=== PATIENT | male | born 1955 ===

== ENCOUNTER 2020-09-02 14:19 | Inpatient (IN) ==
--- OUTSIDE RECORDS SUMMARY | 2020-09-02 14:23 | External Medical Summary | Continuity of Care Document ---
:1955 Author Name Nafisa Mcarthur, Provider Address Unavailable Unavailable , Care Team Providers Name Role Phone Garcia Rayo DO Unavailable [email or web address] Unavailable Unavailable Problems Asthma (493.90) (J45.909) Subcutaneous mass of back (782.2) (R22.2) Depression, major (296.20) (F32.9) Sleep disorder (780.50) (G47.9) Allergies and Adverse Reactions Penicillins (Allergy) Medications Xopenex HFA 45 MCG/ACT Inhalation Aeroso l; INHALE 1 PUFF EVERY 4 HOURS NEEDED. Start: 26-Jul-2018 Refills: 0 15 GM Inhaler FLUoxetine HCl - 20 MG Oral Tablet; TAKE 2 TABLETS DAILY. Start: 26-Jul-2018 Refills: 0 risperiDONE 2 MG Oral Tablet; TAKE 1 TABLET AT BEDTIME. Start: 26-Jul-2018 Refills: 0 traZODone HCl - 150 MG Oral Tablet; TAKE 1 TABLET AT BEDTIME . Start: 26-Jul-2018 Refills: 0 Procedures Procedures not documented Immunizations Immunizations not documented Family History Mother Family history of diabetes mellitus (V18.0) (Z83.3) Status: Active Family history of (799.9) (R99) Status: Active Social History - Smoking Status Ex-smoker Plan of Treatment Planned Observations Planned Goals not documented Results No Known Results Results not documented Encounters Appointment; Garcia Rayo DO 12-Sep-2018 10:00 Encounter Diagnosis: Problem not documented Appointment; Garcia Rayo DO 25-Oct-2018 8:00 Encounter Diagnosis: Problem not documented
[2020-09-02] MEDS ORDERED: SODIUM CHLORIDE 0.9% 1000ML 1,000 ML IV ONE (14:35)
[2020-09-02] MEDS ORDERED: ALBUTEROL 0.083% NEBU SOLN 3 ML VIAL NEB STA (14:35)
[2020-09-02] MEDS ORDERED: DEXAMETHASONE SOD INJ 10 MG/ML VIAL IV ONE (14:35)
--- NOTE | 2020-09-02 14:41 | Emergency Department Note ---
Impression & Plan Hypoxia, Pneumonia due to 2019-nCoV, Influenza ED Provider Note NAME: ANDREA [id number] FREDO AGE: 64 SEX: M : 1955 ARRIVES VIA: Ambulance INFORMANT: Patient ED PROVIDER(S): Morgan Workman DO CHIEF COMPLAINT: SOB HPI: Patient is a 64-year-old male with a past medical history of COPD who presents to the ER for shortness of breath. He is a prisoner who is positive for Covid on the . Started with a dry cough, diffuse myalgias and arthralgias. Shortness of breath has been getting significantly worse over the past 3 days. He was placed on nasal cannula. Shortness of breath persistently worsened and consequently O2's were increased and he was sent in for further evaluation. He has 75% on room air. Admits to intermittent chest pain only with coughing. No swelling of legs. No recent trips or travel. No history of blood clots. ROS: See above HPI for pertinent positives & negatives. A total of 10 systems reviewed and were otherwise negative. PAST MEDICAL HISTORY:See Below PAST SURGICAL HISTORY:See Below FAMILY HISTORY:See Below SOCIAL HISTORY:See Below HOME MEDICATIONS:See Below ALLERGIES:See Below VITALS:See Below PHYSICAL EXAMINATION: GENERAL: Sitting up in bed, alert, ill appearing, moderate distress EYE EXAM: normal conjunctiva. PERRL and EOM's grossly intact. OROPHARYNX: Mask in place NECK: supple, no nuchal rigidity, no adenopathy, non-tender LUNGS: Wheezing bilaterally. Normal chest wall mechanics HEART: no murmurs, S1 normal and S2 normal ABDOMEN: abdomen soft, non-tender, normo-active bowel sounds, no masses, no rebound or guarding. BACK: Back is symmetrical on inspection and there is no deformity, no midline tenderness, no CVA tenderness. SKIN: no rashes and no bruising UPPER EXTREMITIES: upper extremities are grossly normal. LOWER EXTREMITIES: No pitting edema. NEURO EXAM: Normal sensorium, cranial nerves II-XII grossly intact, normal speech, no gross weakness of arms, no gross weakness of legs. MEDICAL DECISION MAKING: Patient is a 64-year-old male with a past medical history of COPD that presents the ER for shortness of breath. IV was established blood work was obtained. He was placed on nasal cannula upon arrival as he was found to be 75% on room air. Labs show no significant leukocytosis or anemia. INR was unremarkable. D-dimer was elevated at 730. VBG was unremarkable. BMP with a transaminitis. Troponin was negative. Patient is positive for Covid as an outpatient and is positive for influenza. Attempted to obtain CT angio of the chest but was unable to lay flat. He was flipped to high flow nasal cannula. He was given IV antibiotics. Did place him on a heparin drip for the concern as he is Covid positive from the custodial concern for clotting. He was updated bedside. He had no bleeding risk factors. He was discussed with hospitalist and will be admitted for further work-up. He remained on high flow throughout the remainder of his stay in the ER. Triage Nursing notes reviewed. Limited review of prior medical records performed Vital Signs: reviewed and remarkable for hypoxic Differential diagnosis: Differential diagnoses includes but is not limited to pneumonia, bronchitis, COPD/Asthma exacerbation, pneumothorax, pulmonary embolism, congestive heart failure, acute coronary syndrome ER treatment provided: See below Diagnostics interpreted by me: ECG: Sinus rhythm rate 89 Normal axis No PVCs QTC 435 Cardiac Monitoring: An order was placed for continuous cardiac monitoring. The monitor shows a rate of 94 with sinus rhythm. Laboratory studies: As stated above and show below. Imaging studies: Portable AP upright 1 view of the chest shows multifocal pneumonia with bilateral opacities Consultation(s): Discussed with the hospitalist for further evaluation Procedures: none Critical Care: I have personally spent 52 minutes of critical care time in the direct management of this patient. This includes bedside care, interpretation of diagnostic studies, and testing, discussion with consultants, patient, and family members, and other required patient management activities. This 52 minutes is in excess of all separately billable procedures. Past Med/Surg History Medical History (Updated 09/02/20 @ 19:17 by Morgan Workman DO) Anxiety Bipolar disorder Chronic back pain Chronic obstructive pulmonary disease inhaler prn Depression GERD (gastroesophageal reflux disease) Irregular heartbeat Prostate cancer Surgical History No history of previous surgery Family History Other Family history unknown Social History Smoking Status: Former smoker Hx Alcohol Use: No Hx Substance Use: Yes (per record pt marked he had a hx of cocaine use) Last Used Substance Other:: unknown, pt is an inmate at [facility] Preferred Language: Maori Client Delivery Manager Required: No Beliefs That Will Affect Care: None Current Living Situation: Other Current Living Situation Comment: pt is an [facility] at [facility] Lela Feels Safe at Home: Yes Allergies Allergies Allergy/AdvReac Type Severity Reaction Status Date / Time Penicillins Allergy Unknown Unknown Verified 09/02/20 15:16 Home Meds Home Medications Medication Instructions Recorded Confirmed fluoxetine 40 mg PO HS 10/02/18 09/02/20 risperidone 2 mg PO HS 10/02/18 09/02/20 trazodone 150 mg PO HS 10/02/18 09/02/20 acetaminophen [Tylenol Extra 1,000 mg PO TID PRN 09/02/20 09/02/20 Strength] cholecalciferol (vitamin D3) 25 mcg PO DAILY 09/02/20 09/02/20 [Vitamin D3] ciclesonide [Alvesco] 1 puff INHALATION BID 09/02/20 09/02/20 ibuprofen 600 mg PO TID PRN 09/02/20 09/02/20 omeprazole 20 mg PO DAILY 09/02/20 09/02/20 ondansetron HCl 4 mg PO Q8H PRN 09/02/20 09/02/20 zinc sulfate 220 mg PO BID 09/02/20 09/02/20 Results & Data (ED) Vital Signs Vital Signs - 24 hr 09/02/20 14:26 09/02/20 14:30 09/02/20 14:31 Temperature Temperature Source Pulse Rate 93 H 92 H 91 H Pulse Rate [Apical] Pulse Rate from SpO2 Sensor 92 H 93 H 92 H Respiratory Rate 22 30 H 30 H Respiratory Effort / Characteristics Blood Pressure 147/92 H 166/101 H Blood Pressure Mean 110 122 Pulse Oximetry 96 96 97 Oxygen Delivery Method Oxymask Oxymask Oxymask Oxygen Flow Rate 10 10 10 Fraction of Inspired Oxygen Sepsis Recent Fever Within 48 Hours Sepsis New/Unexplained Change in Mental Status Sepsis Action Taken by Nursing 09/02/20 14:36 09/02/20 14:40 09/02/20 14:50 Temperature 37.7 C H Temperature Source Oral Pulse Rate 99 H 94 H 90 Pulse Rate [Apical] Pulse Rate from SpO2 Sensor 94 H 91 H Respiratory Rate 24 30 H 30 H Respiratory Effort / Characteristics Spontaneous Blood Pressure 166/91 H Blood Pressure Mean 116 Pulse Oximetry 97 95 93 Oxygen Delivery Method Nasal Cannula Oxymask Oxymask Oxygen Flow Rate 6 10 10 Fraction of Inspired Oxygen Sepsis Recent Fever Within 48 Hours Yes Sepsis New/Unexplained Change in Mental Status No Sepsis Action Taken by Nursing No Action Required 09/02/20 15:00 09/02/20 15:05 09/02/20 15:10 Temperature Temperature Source Pulse Rate 98 H 91 H 91 H Pulse Rate [Apical] Pulse Rate from SpO2 Sensor 99 H 93 H 91 H Respiratory Rate 22 22 Respiratory Effort / Characteristics Blood Pressure 177/94 H Blood Pressure Mean 121 Pulse Oximetry 94 94 94 Oxygen Delivery Method Oxymask Oxymask Oxymask Oxygen Flow Rate 10 10 10 Fraction of Inspired Oxygen Sepsis Recent Fever Within 48 Hours Sepsis New/Unexplained Change in Mental Status Sepsis Action Taken by Nursing 09/02/20 15:20 09/02/20 15:27 09/02/20 15:30 Temperature Temperature Source Pulse Rate 111 H 102 H Pulse Rate [Apical] 87 Pulse Rate from SpO2 Sensor 109 H 102 H Respiratory Rate 25 H 20 19 Respiratory Effort / Characteristics Spontaneous SOB on Exertion Blood Pressure Blood Pressure Mean Pulse Oximetry 90 91 97 Oxygen Delivery Method Oxymask High Flow Nasal Cannula High Flow Nasal Cannula Oxygen Flow Rate 10 30 Fraction of Inspired Oxygen 100 Sepsis Recent Fever Within 48 Hours Sepsis New/Unexplained Change in Mental Status Sepsis Action Taken by Nursing 09/02/20 15:31 09/02/20 15:40 09/02/20 16:08 Temperature Temperature Source Pulse Rate 94 H 90 97 H Pulse Rate [Apical] Pulse Rate from SpO2 Sensor 94 H 89 96 H Respiratory Rate 39 H 33 H 16 Respiratory Effort / Characteristics Blood Pressure 162/88 H Blood Pressure Mean 112 Pulse Oximetry 97 98 91 Oxygen Delivery Method High Flow Nasal Cannula High Flow Nasal Cannula Oxygen Flow Rate Fraction of Inspired Oxygen Sepsis Recent Fever Within 48 Hours Sepsis New/Unexplained Change in Mental Status Sepsis Action Taken by Nursing 09/02/20 16:10 09/02/20 16:11 09/02/20 16:20 Temperature Temperature Source Pulse Rate 96 H 93 H 92 H Pulse Rate [Apical] Pulse Rate from SpO2 Sensor 96 H 94 H 92 H Respiratory Rate 16 32 H 27 H Respiratory Effort / Characteristics Blood Pressure 168/101 H Blood Pressure Mean 123 Pulse Oximetry 93 94 93 Oxygen Delivery Method Oxygen Flow Rate Fraction of Inspired Oxygen Sepsis Recent Fever Within 48 Hours Sepsis New/Unexplained Change in Mental Status Sepsis Action Taken by Nursing 09/02/20 16:30 09/02/20 16:31 09/02/20 16:40 Temperature Temperature Source Pulse Rate 95 H 94 H 93 H Pulse Rate [Apical] Pulse Rate from SpO2 Sensor 96 H 94 H 93 H Respiratory Rate Respiratory Effort / Characteristics Blood Pressure 169/95 H Blood Pressure Mean 119 Pulse Oximetry 96 96 96 Oxygen Delivery Method Oxygen Flow Rate Fraction of Inspired Oxygen Sepsis Recent Fever Within 48 Hours Sepsis New/Unexplained Change in Mental Status Sepsis Action Taken by Nursing 09/02/20 16:50 09/02/20 17:00 09/02/20 17:10 Temperature Temperature Source Pulse Rate 105 H 102 H 103 H Pulse Rate [Apical] Pulse Rate from SpO2 Sensor 107 H 103 H 103 H Respiratory Rate 16 Respiratory Effort / Characteristics Blood Pressure Blood Pressure Mean Pulse Oximetry 98 95 92 Oxygen Delivery Method Oxygen Flow Rate Fraction of Inspired Oxygen Sepsis Recent Fever Within 48 Hours Sepsis New/Unexplained Change in Mental Status Sepsis Action Taken by Nursing 09/02/20 17:13 09/02/20 17:20 09/02/20 17:30 Temperature Temperature Source Pulse Rate 92 H 93 H 90 Pulse Rate [Apical] Pulse Rate from SpO2 Sensor 90 96 H 91 H Respiratory Rate 26 H Respiratory Effort / Characteristics Blood Pressure 167/98 H Blood Pressure Mean 121 Pulse Oximetry 92 92 Oxygen Delivery Method Oxygen Flow Rate Fraction of Inspired Oxygen Sepsis Recent Fever Within 48 Hours Sepsis New/Unexplained Change in Mental Status Sepsis Action Taken by Nursing 09/02/20 17:40 09/02/20 17:50 09/02/20 18:00 Temperature Temperature Source Pulse Rate 90 97 H 99 H Pulse Rate [Apical] Pulse Rate from SpO2 Sensor 88 98 H 99 H Respiratory Rate Respiratory Effort / Characteristics Blood Pressure Blood Pressure Mean Pulse Oximetry 94 91 95 Oxygen Delivery Method Oxygen Flow Rate Fraction of Inspired Oxygen Sepsis Recent Fever Within 48 Hours Sepsis New/Unexplained Change in Mental Status Sepsis Action Taken by Nursing 09/02/20 18:01 09/02/20 18:10 09/02/20 18:20 Temperature Temperature Source Pulse Rate 99 H 101 H 96 H Pulse Rate [Apical] Pulse Rate from SpO2 Sensor 100 H 98 H 97 H Respiratory Rate 23 Respiratory Effort / Characteristics Blood Pressure 158/109 H Blood Pressure Mean 125 Pulse Oximetry 95 93 94 Oxygen Delivery Method Oxygen Flow Rate Fraction of Inspired Oxygen Sepsis Recent Fever Within 48 Hours Sepsis New/Unexplained Change in Mental Status Sepsis Action Taken by Nursing Laboratory Data Result diagrams: 09/02/20 15:00 09/02/20 15:00 Lab Results 09/02/20 09/02/20 09/02/20 Range/Units 15:00 15:00 15:00 WBC 10.30 (4.8-10.8) K/uL RBC 5.18 (4.7-6.1) M/uL Hgb 15.1 (14.0-18.0) g/dL Hct 44.5 (42-52) % MCV 85.9 (80-100) fL MCH 29.2 (25-34) pg MCHC 33.9 (32-36) g/dL RDW Std Deviation 45.8 (36.4-46.3) fL RDW Coeff of Raimundo 14.5 (11.5-14.5) % Plt Count 274 (130-400) K/uL MPV 10.4 (7.4-10.4) fL Immature Gran % (Auto) 1.1 % Neut % (Auto) 83.0 % Lymph % (Auto) 9.6 % [place] % (Auto) 6.1 % Eos % (Auto) 0.1 % Baso % (Auto) 0.1 % Neut # (Auto) 8.55 H (1.4-6.5) K/uL Lymph # (Auto) 0.99 L (1.2-3.4) K/uL [place] # (Auto) 0.63 H (0.11-0.59) K/uL Eos # (Auto) 0.01 (0-0.5) K/uL Baso # (Auto) 0.01 (0-0.2) K/uL Immature Gran # (Auto) 0.11 H (0.00-0.02) K/uL PT Cancelled INR Cancelled APTT Cancelled PTT Ratio Cancelled D-Dimer (0-500) ug/L FEU VBG pH (7.36-7.41) VBG pCO2 (38-50) mmHg VBG pO2 mmHg VBG HCO3 mmol/L VBG O2 Saturation % VBG Base Excess mEq/L Barometric Pressure mm/Hg Sodium 137 (136-145) mmol/L Potassium 4.2 (3.5-5.1) mmol/L Chloride 106 (98-107) mmol/L Carbon Dioxide 29 (21-32) mmol/L Anion Gap 2.0 L (3-11) BUN 16 (7-18) mg/dl Creatinine 1.33 (0.6-1.4) mg/dl Est Cr Clr Drug Dosing 61.5 ml/min Est GFR ( Amer) 65.9 Est GFR (Non-Af Amer) 56.9 BUN/Creatinine Ratio 12.1 (10-20) Glucose 107 H (70-99) mg/dl Lactate (0.4-2.0) mmol/L Calcium 9.1 (8.5-10.1) mg/dl Ferritin (8-388) ng/ml Total Bilirubin 0.4 (0.2-1) mg/dl AST 179 H (15-37) U/L ALT 159 H (12-78) U/L Alkaline Phosphatase 92 (45-117) U/L Lactate Dehydrogenase (87-241) U/L Total Creatine Kinase (39-308) U/L Troponin I < 0.015 (0-0.045) ng/ml C-Reactive Protein (0-0.29) mg/dl NT-Pro-B Natriuret Pep (0-900) pg/ml Total Protein 7.8 (6.4-8.2) gm/dl Albumin 2.9 L (3.4-5.0) gm/dl Globulin 4.9 H (2.5-4.0) gm/dl Albumin/Globulin Ratio 0.6 L (0.9-2) Lipase 67 L (73-393) U/L Procalcitonin (0-0.5) ng/ml Influ A Molecular Assay (Negative) Influ B Molecular Assay (Negative) Blood Type Antibody Screen 09/02/20 09/02/20 09/02/20 Range/Units 15:00 15:56 17:15 WBC (4.8-10.8) K/uL RBC (4.7-6.1) M/uL Hgb (14.0-18.0) g/dL Hct (42-52) % MCV (80-100) fL MCH (25-34) pg MCHC (32-36) g/dL RDW Std Deviation (36.4-46.3) fL RDW Coeff of Raimundo (11.5-14.5) % Plt Count (130-400) K/uL MPV (7.4-10.4) fL Immature Gran % (Auto) % Neut % (Auto) % Lymph % (Auto) % [place] % (Auto) % Eos % (Auto) % Baso % (Auto) % Neut # (Auto) (1.4-6.5) K/uL Lymph # (Auto) (1.2-3.4) K/uL [place] # (Auto) (0.11-0.59) K/uL Eos # (Auto) (0-0.5) K/uL Baso # (Auto) (0-0.2) K/uL Immature Gran # (Auto) (0.00-0.02) K/uL PT INR APTT PTT Ratio D-Dimer (0-500) ug/L FEU VBG pH 7.36 (7.36-7.41) VBG pCO2 49 (38-50) mmHg VBG pO2 25 mmHg VBG HCO3 27 mmol/L VBG O2 Saturation < 60.0 % VBG Base Excess 1.1 mEq/L Barometric Pressure 721.2 mm/Hg Sodium (136-145) mmol/L Potassium (3.5-5.1) mmol/L Chloride (98-107) mmol/L Carbon Dioxide (21-32) mmol/L Anion Gap (3-11) BUN (7-18) mg/dl Creatinine (0.6-1.4) mg/dl Est Cr Clr Drug Dosing ml/min Est GFR ( Amer) Est GFR (Non-Af Amer) BUN/Creatinine Ratio (10-20) Glucose (70-99) mg/dl Lactate 1.4 (0.4-2.0) mmol/L Calcium (8.5-10.1) mg/dl Ferritin (8-388) ng/ml Total Bilirubin (0.2-1) mg/dl AST (15-37) U/L ALT (12-78) U/L Alkaline Phosphatase (45-117) U/L Lactate Dehydrogenase (87-241) U/L Total Creatine Kinase (39-308) U/L Troponin I (0-0.045) ng/ml C-Reactive Protein (0-0.29) mg/dl NT-Pro-B Natriuret Pep 36 (0-900) pg/ml Total Protein (6.4-8.2) gm/dl Albumin (3.4-5.0) gm/dl Globulin (2.5-4.0) gm/dl Albumin/Globulin Ratio (0.9-2) Lipase (73-393) U/L Procalcitonin (0-0.5) ng/ml Influ A Molecular Assay (Negative) Influ B Molecular Assay (Negative) Blood Type Antibody Screen 09/02/20 09/02/20 09/02/20 Range/Units 17:15 17:15 17:15 WBC (4.8-10.8) K/uL RBC (4.7-6.1) M/uL Hgb (14.0-18.0) g/dL Hct (42-52) % MCV (80-100) fL MCH (25-34) pg MCHC (32-36) g/dL RDW Std Deviation (36.4-46.3) fL RDW Coeff of Raimundo (11.5-14.5) % Plt Count (130-400) K/uL MPV (7.4-10.4) fL Immature Gran % (Auto) % Neut % (Auto) % Lymph % (Auto) % [place] % (Auto) % Eos % (Auto) % Baso % (Auto) % Neut # (Auto) (1.4-6.5) K/uL Lymph # (Auto) (1.2-3.4) K/uL [place] # (Auto) (0.11-0.59) K/uL Eos # (Auto) (0-0.5) K/uL Baso # (Auto) (0-0.2) K/uL Immature Gran # (Auto) (0.00-0.02) K/uL PT INR APTT PTT Ratio D-Dimer (0-500) ug/L FEU VBG pH (7.36-7.41) VBG pCO2 (38-50) mmHg VBG pO2 mmHg VBG HCO3 mmol/L VBG O2 Saturation % VBG Base Excess mEq/L Barometric Pressure mm/Hg Sodium (136-145) mmol/L Potassium (3.5-5.1) mmol/L Chloride (98-107) mmol/L Carbon Dioxide (21-32) mmol/L Anion Gap (3-11) BUN (7-18) mg/dl Creatinine (0.6-1.4) mg/dl Est Cr Clr Drug Dosing ml/min Est GFR ( Amer) Est GFR (Non-Af Amer) BUN/Creatinine Ratio (10-20) Glucose (70-99) mg/dl Lactate (0.4-2.0) mmol/L Calcium (8.5-10.1) mg/dl Ferritin 2456.7 H (8-388) ng/ml Total Bilirubin (0.2-1) mg/dl AST (15-37) U/L ALT (12-78) U/L Alkaline Phosphatase (45-117) U/L Lactate Dehydrogenase 713 H (87-241) U/L Total Creatine Kinase 862 H (39-308) U/L Troponin I (0-0.045) ng/ml C-Reactive Protein 13.70 H (0-0.29) mg/dl NT-Pro-B Natriuret Pep (0-900) pg/ml Total Protein (6.4-8.2) gm/dl Albumin (3.4-5.0) gm/dl Globulin (2.5-4.0) gm/dl Albumin/Globulin Ratio (0.9-2) Lipase (73-393) U/L Procalcitonin (0-0.5) ng/ml Influ A Molecular Assay (Negative) Influ B Molecular Assay (Negative) Blood Type O Positive Antibody Screen NEGATIVE 09/02/20 09/02/20 09/02/20 Range/Units 17:15 17:15 18:25 WBC (4.8-10.8) K/uL RBC (4.7-6.1) M/uL Hgb (14.0-18.0) g/dL Hct (42-52) % MCV (80-100) fL MCH (25-34) pg MCHC (32-36) g/dL RDW Std Deviation (36.4-46.3) fL RDW Coeff of Raimundo (11.5-14.5) % Plt Count (130-400) K/uL MPV (7.4-10.4) fL Immature Gran % (Auto) % Neut % (Auto) % Lymph % (Auto) % [place] % (Auto) % Eos % (Auto) % Baso % (Auto) % Neut # (Auto) (1.4-6.5) K/uL Lymph # (Auto) (1.2-3.4) K/uL [place] # (Auto) (0.11-0.59) K/uL Eos # (Auto) (0-0.5) K/uL Baso # (Auto) (0-0.2) K/uL Immature Gran # (Auto) (0.00-0.02) K/uL PT 12.0 INR 1.1 APTT 36.7 H PTT Ratio 1.3 D-Dimer 730 H* (0-500) ug/L FEU VBG pH (7.36-7.41) VBG pCO2 (38-50) mmHg VBG pO2 mmHg VBG HCO3 mmol/L VBG O2 Saturation % VBG Base Excess mEq/L Barometric Pressure mm/Hg Sodium (136-145) mmol/L Potassium (3.5-5.1) mmol/L Chloride (98-107) mmol/L Carbon Dioxide (21-32) mmol/L Anion Gap (3-11) BUN (7-18) mg/dl Creatinine (0.6-1.4) mg/dl Est Cr Clr Drug Dosing ml/min Est GFR ( Amer) Est GFR (Non-Af Amer) BUN/Creatinine Ratio (10-20) Glucose (70-99) mg/dl Lactate (0.4-2.0) mmol/L Calcium (8.5-10.1) mg/dl Ferritin (8-388) ng/ml Total Bilirubin (0.2-1) mg/dl AST (15-37) U/L ALT (12-78) U/L Alkaline Phosphatase (45-117) U/L Lactate Dehydrogenase (87-241) U/L Total Creatine Kinase (39-308) U/L Troponin I (0-0.045) ng/ml C-Reactive Protein (0-0.29) mg/dl NT-Pro-B Natriuret Pep (0-900) pg/ml Total Protein (6.4-8.2) gm/dl Albumin (3.4-5.0) gm/dl Globulin (2.5-4.0) gm/dl Albumin/Globulin Ratio (0.9-2) Lipase (73-393) U/L Procalcitonin 0.71 H (0-0.5) ng/ml Influ A Molecular Assay Negative (Negative) Influ B Molecular Assay Positive A* (Negative) Blood Type Antibody Screen Administered Medications Heparin Sodium/Dextrose (Heparin Sodium/Dextrose) 25,000 units in 500 mls @ 18 mls/hr IV .Q24H [facility]; Protocol Stop: 10/02/20 16:29 Last Admin: 09/02/20 16:45 Dose: 900 units/hr, 18 mls/hr Documented by: [id number] Cosigned by: [id number] Azithromycin 500 mg/ Dextrose 255 mls @ 127.5 mls/hr IV NOW STA Stop: 09/02/20 19:55 Last Admin: 09/02/20 18:25 Dose: 127.5 mls/hr Documented by: [id number] Discontinued Medications Albuterol (Albuterol 0.083% Nebu Soln 3 Ml Vial) 5 mg NEB NOW STA Stop: 09/02/20 14:36 Last Admin: 09/02/20 15:23 Dose: 5 mg Documented by: [id number] Dexamethasone (Dexamethasone Sod Inj 10 Mg/Ml Vial) 6 mg IV NOW ONE Stop: 09/02/20 14:36 Last Admin: 09/02/20 15:07 Dose: 6 mg Documented by: [id number] Furosemide (Furosemide 40 Mg/4 Ml Vial) 40 mg IV NOW STA Stop: 09/02/20 16:46 Last Admin: 09/02/20 16:49 Dose: 40 mg Documented by: [id number] Heparin Sodium (Porcine) (Heparin Sod (Porcine) 1000 Unit/Ml 10 Ml Vial) Confirm Administered Dose 10,000 units .ROUTE .STK-MED ONE Stop: 09/02/20 16:42 Last Admin: 09/02/20 16:45 Dose: 4,000 units Documented by: [id number] Cosigned by: [id number] Heparin Sodium (Porcine) (Heparin Bolus Ed Use Only) 4,000 units IV NOW STA Stop: 09/02/20 16:53 Last Admin: 09/02/20 17:50 Dose: Not Given Documented by: [id number] Heparin Sodium/Dextrose (Heparin Iv Low Dose With Bolus) 1 ea IV NOW STA; Protocol Stop: 09/02/20 16:17 Last Admin: 09/02/20 16:46 Dose: Not Given Documented by: [id number] Sodium Chloride (Nss 1000ml) 1,000 mls @ 999 mls/hr IV .Q1H1M ONE Stop: 09/02/20 15:35 Last Infusion: 09/02/20 16:15 Dose: 0 mls/hr Documented by: [id number] Admin: 09/02/20 15:07 Dose: 999 mls/hr Documented by: [id number] Ceftriaxone Sodium (Rocephin) 1,000 mg in 50 mls @ 100 mls/hr IV NOW STA; Protocol Stop: 09/02/20 15:27 Last Infusion: 09/02/20 16:33 Dose: 0 mls/hr Documented by: [id number] Admin: 09/02/20 15:09 Dose: 100 mls/hr Documented by: [id number] Ceftriaxone Sodium (Rocephin) 1,000 mg in 50 mls @ 100 mls/hr IV NOW STA Stop: 09/02/20 17:19 Last Admin: 09/02/20 17:20 Dose: 100 mls/hr Documented by: [id number] Ioversol (Optiray 320 125ml) 116 ml IV ONCE ONE Stop: 09/02/20 15:58 Last Admin: 09/02/20 15:58 Dose: 116 ml Documented by: [id number] Discharge Plan Visit Data Chief Complaint: Shortness of Breath/Dyspnea ED Provider: Morgan Workman Discharge Problem: Hypoxia, Pneumonia due to 2019-nCoV, Influenza Forms Stand Alone Forms: My [facility] Prescriptions Prescriptions: No Action risperidone 2 mg Tablet 2 mg PO HS RF: 0 trazodone 150 mg Tablet 150 mg PO HS RF: 0 fluoxetine 20 mg Tablet 40 mg PO HS RF: 0 ondansetron HCl 4 mg Tablet 4 mg PO Q8H PRN (Reason: Nausea) RF: 0 acetaminophen [Tylenol Extra Strength] 500 mg Tablet 1,000 mg PO TID PRN (Reason: Pain) RF: 0 zinc sulfate 220 mg Tablet 220 mg PO BID RF: 0 ibuprofen 600 mg Tablet 600 mg PO TID PRN (Reason: Pain) RF: 0 cholecalciferol (vitamin D3) [Vitamin D3] 25 mcg (1,000 unit) Tablet 25 mcg PO DAILY RF: 0 omeprazole 20 mg Tablet,Delayed Release (Dr/Ec) 20 mg PO DAILY RF: 0 Alvesco 80 mcg/actuation Hfa Aerosol Inhaler 1 puff INHALATION BID RF: 0
--- NOTE | 2020-09-02 14:49 | XRay Report ---
XR chest 1V portable CLINICAL HISTORY: Atypical chest pain. Shortness of breath. COMPARISON STUDY: No previous studies for comparison. FINDINGS: The heart is mildly enlarged. There is soft tissue prominence of the azygous region. Venous engorgement versus adenopathy. There are diffuse bilateral airspace opacities. Pulmonary edema versu s a multifocal pneumonia.[There are no large pleural effusions. IMPRESSION: 1. Cardiomegaly and bilateral pulmonary airspace opacities. Likely diagnostic considerations include pulmonary edema versus a multifocal pneumonia. Clinical and radiographic follow-up is recommended ACT 112: Negative or not required by law. Electronically signed by: Navdeep Skinner M.D. 09/02/2020 2:48 PM
[2020-09-02] MEDS ORDERED: cefTRIAXone SODIUM 1,000 MG/50 ML BAG IV STA ×2 (14:58→16:50)
[2020-09-02 15:19] LABS: Basophils # (auto) 0.01 K/uL (0-0.2); Basophils % (auto) 0.1 %; Eosinophils # (auto) 0.01 K/uL (0-0.5); Eosinophils % (auto) 0.1 %; Hematocrit (blood only) 44.5 % (42-52); Hemoglobin 15.1 g/dL (14.0-18.0); Immature Granulocytes # (auto) 0.11 K/uL (0.00-0.02); Immature Granulocytes % (auto) 1.1 %; Lymphocytes # (auto) 0.99 K/uL (1.2-3.4); Lymphocytes % (auto) 9.6 %; Mean Corpuscular Hemoglobin 29.2 pg (25-34); Mean Corpuscular Hgb Conc 33.9 g/dL (32-36); Mean Corpuscular Volume 85.9 fL (80-100); Mean Platelet Volume 10.4 fL (7.4-10.4); Monocytes # (auto) 0.63 K/uL (0.11-0.59); Monocytes % (auto) 6.1 %; Neutrophils # (auto) 8.55 K/uL (1.4-6.5); Platelet Count 274 K/uL (130-400); RDW Coefficient of Variation 14.5 % (11.5-14.5); RDW Standard Deviation 45.8 fL (36.4-46.3); Red Blood Count 5.18 M/uL (4.7-6.1)
[2020-09-02 15:35] LABS: Alanine Aminotransferase 159 U/L (12-78); Albumin Level 2.9 gm/dl (3.4-5.0); Aspartate Aminotransferase 179 U/L (15-37); BUN Creatinine Ratio 12.1 (10-20); Blood Urea Nitrogen 16 mg/dl (7-18); Calcium 9.1 mg/dl (8.5-10.1); Carbon Dioxide 29 mmol/L (21-32); Chloride 106 mmol/L (98-107); Creatinine Clr Calc Pharmacy 61.5 ml/min; Est GFR (African American) 65.9; Est GFR (Non-African American) 56.9; Glucose 107 mg/dl (70-99); Lipase 67 U/L (73-393); Potassium 4.2 mmol/L (3.5-5.1); Sodium 137 mmol/L (136-145)
[2020-09-02 15:40] LABS: Albumin Globulin Ratio 0.6 (0.9-2); Alkaline Phosphatase 92 U/L (45-117); Bilirubin,Total 0.4 mg/dl (0.2-1); Globulin 4.9 gm/dl (2.5-4.0); Total Protein 7.8 gm/dl (6.4-8.2); Troponin I < 0.015 ng/ml (0-0.045)
[2020-09-02] MEDS ORDERED: OPTIRAY 320 125ml IV ONE (15:57)
[2020-09-02 16:10] LABS: Base Excess VBG 1.1 mEq/L; HCO3 VBG 27 mmol/L; PCO2 VBG 49 mmHg (38-50); PO2 VBG 25 mmHg; pH VBG 7.36 (7.36-7.41)
[2020-09-02 16:15] LABS: Oxygen Saturation VBG < 60.0 %
[2020-09-02] MEDS ORDERED: Heparin IV Low Dose WITH Bolus IV STA (16:16)
[2020-09-02] MEDS ORDERED: HEPARIN SODIUM/DEXTROSE 25,000 UNITS/500 ML BAG IV SCH (16:30)
[2020-09-02] MEDS ORDERED: HEPARIN SOD (PORCINE) 1000 UNIT/ML 10 ML VIAL ONE (16:41)
[2020-09-02] MEDS ORDERED: FUROSEMIDE 40 MG/4 ML VIAL IV STA (16:45)
--- NOTE | 2020-09-02 16:48 | History & Physical Report ---
Date of Service September 02, 2020 Assessment & Plan (1) Acute respiratory failure with hypoxia: Secondary to COVID-19, influenza, pulmonary edema and possible secondary bacterial infection. Pulmonary embolism is less likely given d-dimer but risk of respiratory arrest given current desaturations on lying flat therefore could not perform CT for PE. Given severity of illness and high risk of deterioration will consult pulmonology to assist in care. Try to prone as much as possible. (2) Pneumonia due to COVID-19 virus: Dexamethasone 6 mg IV daily Convalescent plasma deferred due to dubious benefit on day 11 of illness. Day 11 of illness therefore do not suspect any benefit of remdesivir and potential risk with already elevated LFTs. Isolation precautions (3) Influenza B: Tamiflu 75mg PO BID (4) Acute pulmonary edema: No history of congestive heart failure (BNP low suggesting not hypervolemic, clinically dry on exam). No CAMPBELL to explain this. Suspect solely secondary to COVID-19 pneumonia as also clinically dry. Initially given NSS 1 L bolus in ER however given severity of respiratory status despite clinically dry elected to give 40 mg IV Lasix. Defer further lasix to clinical status in AM. Strict I&Os, daily weights - aim for net neutral balance. TTE Low-sodium diet, fluid restriction 1200 mL (5) Multifocal pneumonia: Continue ceftriaxone and azithromycin for secondary bacterial infection Procalcitonin pending (6) GERD (gastroesophageal reflux disease): Switch omeprazole to pantoprazole as per hospital formulary (7) Chronic obstructive pulmonary disease: No acute exacerbation. Patient feels worse with nebulizers Continue Alvesco or hospital formulary equivalent. (8) Bipolar disorder: Continue his usual psychiatric medications - risperidone, trazodone and fluoxetine. Monitor QTc with daily EKG (9) DVT prophylaxis: Iv heparin drip Admission and Anticipated Discharge Date Admission Date: September 02, 2020 History of Present Illness Chief Complaint: Shortness of breath, hypoxia. Primary Care Provider: RILEY Vogel Blayne Medina is a 64-year-old male who presents to the ER from [facility] with shortness of breath and hypoxia. Initially was sick on August 22. Symptoms including fever, chills, shortness of breath, diaphoresis, severe nasal congestion, non-productive cough, myalgias, PND, loss of appetite, loss of taste and smell, nausea, vomiting and orthopnea. When coughing he reports having an electric shock feeling down his right and and jaw. He denies diarrhea, chest or abdominal pain. When coughing right arm electricity, right side of face having pain. Couldn't walk from toilet to bed. He tested positive for COVID-19 around the and was moveed the the COVID-19 unit the . He became so unwell that he was unable to get out of bed with increasing hypoxia therefore was moved to the [facility] on the and has been on supplemental oxygen since then. Today he was noted to be significantly cyanotic with finger nails turning blue and worsening hypoxia (O2 sats 70% on 6L O2) therefore called EMS to transport to the ER. In the ER CXR concerning for cardiomegaly with bilateral pulmonary airspace opacities consistent with pulmonary edema vs. multifocal pneumonia. Since he had already tested positive for COVID-19 this was not repeated. Planned for CT for PE to rule this out however patient had significant desaturations and respiratory distress on lying flat therefore this could not be completed and he was started on IV heparin drip. NSS 1L bolus given as clinically dry on exam. Ceftriaxone and azithromycin given to cover for secondary bacterial infection. MRSA nasal swab negative. Able to maintain saturations around 96% on FiO2 100%, 30LPM high flow O2. He was referred to medicine for admission and ongoing management of COVID-19 pneumonia, acute hypoxic respiratory failure. Influenza PCR done after medicine consulted and subsequently positive for influenza B and patient given Tamiflu 75mg. Allergies Allergy/AdvReac Type Severity Reaction Status Date / Time Penicillins Allergy Unknown Unknown Verified 09/02/20 15:16 Home Medications Medication Instructions Recorded Confirmed Type fluoxetine 40 mg PO HS 10/02/18 09/02/20 History risperidone 2 mg PO HS 10/02/18 09/02/20 History trazodone 150 mg PO HS 10/02/18 09/02/20 History acetaminophen [Tylenol Extra 1,000 mg PO TID PRN 09/02/20 09/02/20 History Strength] cholecalciferol (vitamin D3) 25 mcg PO DAILY 09/02/20 09/02/20 History [Vitamin D3] ciclesonide [Alvesco] 1 puff INHALATION BID 09/02/20 09/02/20 History ibuprofen 600 mg PO TID PRN 09/02/20 09/02/20 History omeprazole 20 mg PO DAILY 09/02/20 09/02/20 History ondansetron HCl 4 mg PO Q8H PRN 09/02/20 09/02/20 History zinc sulfate 220 mg PO BID 09/02/20 09/02/20 History Past Med/Surg History Medical History (Updated 09/03/20 @ 08:17 by Rick Best MD) Anxiety Bipolar disorder Chronic back pain Chronic obstructive pulmonary disease inhaler prn Depression GERD (gastroesophageal reflux disease) Irregular heartbeat Prostate cancer Surgical History No history of previous surgery Family History Other Family history unknown Social History Smoking Status: Former smoker Hx Alcohol Use: No Hx Substance Use: No Preferred Language: Urugu[place] Taxation Consultant Required: No Beliefs That Will Affect Care: None Current Living Situation: Other Current Living Situation Comment: [employer] [facility] Other Information That Helps Us Care for You: Yes (Does not eat pork.) Feels Safe at Home: Yes Safety Concerns: Feels Safe At This Time Assistive Devices: Glasses and Oxygen - Continuous Review of Systems Review of Systems: All systems reviewed & are unremarkable except as noted in HPI & below Physical Exam Constitutional: well developed, well nourished, + acute distress (respiratory) and + ill appearing Eyes: PERRL, conjunctivae normal, anicteric sclerae ENMT: Ears: no external ear abnormality Nose: no external nose abnormality Mouth: + dry oral mucous membranes Neck: trachea midline, no thyromegaly Respiratory: + respiratory distress, + labored breathing, + retractions, + uses accessory muscles and + cough; + not able to speak in complete sentence, normal respiratory pattern, not tachypneic, expiratory phase not prolonged and no pursed lip breathing Auscultation: + diminished lung sounds (thorughout) and + crackles (bibasal); no wheezes Cardiovascular: Rate/Rhythm: regular rate and regular rhythm Heart Sounds: no murmur Vessels: no JVD Extremities: normal capillary refill; no calf tenderness and no pedal edema Gastrointestinal (Abdomen): normal bowel sounds, soft, nontender, no hepatosplenomegaly Musculoskeletal: no cyanosis or clubbing, extremities motor strength 5/5 Skin: no rashes, warm and dry Neurologic: moves all extremities and awake; no focal motor deficits and not confused Psychiatric: A+Ox3, euthymic affect Genitourinary: no CVA tenderness Results & Data Results & Data ([facility]) Vital Signs (Past 12 Hours) Vital Signs Temp Pulse Pulse Resp BP Pulse Ox 09/02/20 15:40 90 33 H 98 09/02/20 15:31 94 H 39 H 162/88 H 97 09/02/20 15:30 102 H 19 97 09/02/20 15:27 87 20 91 09/02/20 15:20 111 H 25 H 90 09/02/20 15:10 91 H 22 94 09/02/20 15:05 91 H 22 177/94 H 94 09/02/20 15:00 98 H 94 09/02/20 14:50 90 30 H 93 09/02/20 14:40 94 H 30 H 95 09/02/20 14:36 37.7 C H 99 H 24 166/91 H 97 09/02/20 14:31 91 H 30 H 97 09/02/20 14:30 92 H 30 H 166/101 H 96 09/02/20 14:26 93 H 22 147/92 H 96 Diagnostic Findings XR chest 1V portable IMPRESSION: 1. Cardiomegaly and bilateral pulmonary airspace opacities. Likely diagnostic considerations include pulmonary edema versus a multifocal pneumonia. Clinical and radiographic follow-up is recommended Medications Administered ER medications given: Heparin low-dose IV with bolus Dexamethasone 6 mg IV Albuterol 5 mg neb NSS 1 hour bolus Ceftriaxone 1 g IV ECG Indication: SOB/dyspnea Rate (beats per minute): 89 Rhythm: normal sinus Findings: no acute ischemic change Comparison ECG Date: no prior available Code Status & VTE Plan Code Status Full VTE Prophylaxis Plan VTE Prophylaxis will be ordered: Yes PG Care Time/CCT Total # of Minutes Spent Total Time Spent with Patient: Total time spent is greater than 50% in coordination of care (as documented) at patient's floor/unit and/or counseling patient: Coding Level of Care Code 87647 Initial Inpt Care Lvl 3 Diagnoses Acute respiratory failure with hypoxia J96.01 Pneumonia due to COVID-19 virus U07.1; J12.82 Influenza B J10.1 Acute pulmonary edema J81.0 Multifocal pneumonia J18.9 GERD (gastroesophageal reflux disease) K21.9 Chronic obstructive pulmonary disease J44.9 Bipolar disorder F31.9 DVT prophylaxis Z29.9
[2020-09-02] MEDS ORDERED: Heparin BOLUS **ED Use Only IV STA (16:52)
[2020-09-02 17:42] LABS: INR 1.1 (0.9-1.1); Partial Thromboplastin Ratio 1.3; Partial Thromboplastin Time 36.7 Seconds (21.0-31.0)
[2020-09-02 17:44] LABS: D Dimer 730 ug/L FEU (0-500)
[2020-09-02] MEDS ORDERED: AZITHROMYCIN 500 MG in DEXTROSE 5% 250 ML IV STA (17:56)
[2020-09-02 18:09] LABS: C Reactive Protein 13.7 mg/dl (0-0.29); Ferritin 2456.7 ng/ml (8-388)
[2020-09-02 19:01] LABS: Influenza A virus by PCR Negative (Negative); Influenza B virus by PCR Positive (Negative)
[2020-09-02] MEDS ORDERED: OSELTAMIVIR PHOSPHATE 75 MG CAP PO STA (19:15)
[2020-09-02] MEDS ORDERED: ONDANSETRON INJ 2 MG/ML 2 ML VIAL IV PRN (21:26)
[2020-09-02] MEDS ORDERED: ALUMINUM/MAGNESIUM SUSP 30 ML UDC PO PRN (21:26)
[2020-09-02 22:08] LABS: Base Excess ABG 1.3 mEq/L (-9-1.8); HCO3 ABG 25 mmol/L (19-24); Oxygen Saturation ABG 95.9 % (90-95); PCO2 ABG 37 mmHg (35-46); PO2 ABG 76 mmHg (80-95); pH ABG 7.45 (7.35-7.45)
[2020-09-02 22:09] LABS: Allen Test POS (Pos)
[2020-09-02] MEDS: traZODone HCL 50 MG TAB PO SCH (22:58)
[2020-09-02] MEDS: risperiDONE 2 MG TABLET PO SCH (22:59)
[2020-09-02] MEDS: FLUoxetine HCL 20 MG CAP PO SCH (22:59)
[2020-09-02 23:57] LABS: Partial Thromboplastin Ratio 2.6
[2020-09-03 00:04] LABS: Partial Thromboplastin Time 71.2 Seconds (21.0-31.0)
[2020-09-03 07:36] LABS: Basophils # (auto) 0.02 K/uL (0-0.2); Basophils % (auto) 0.2 %; Hematocrit (blood only) 46.6 % (42-52); Immature Granulocytes % (auto) 1.7 %; Lymphocytes # (auto) 1.16 K/uL (1.2-3.4); Lymphocytes % (auto) 9.9 %; Mean Corpuscular Hemoglobin 29.1 pg (25-34); Mean Corpuscular Hgb Conc 34.3 g/dL (32-36); Mean Corpuscular Volume 84.7 fL (80-100); Mean Platelet Volume 10.5 fL (7.4-10.4); Monocytes # (auto) 0.96 K/uL (0.11-0.59); Monocytes % (auto) 8.2 %; Neutrophils # (auto) 9.38 K/uL (1.4-6.5); Platelet Count 329 K/uL (130-400); RDW Coefficient of Variation 14.4 % (11.5-14.5); RDW Standard Deviation 45.2 fL (36.4-46.3); White Blood Count 11.72 K/uL (4.8-10.8)
[2020-09-03 07:59] LABS: Partial Thromboplastin Ratio 1.8
[2020-09-03 08:03] LABS: Albumin Level 3.1 gm/dl (3.4-5.0); BUN Creatinine Ratio 13.7 (10-20); Calcium 9.8 mg/dl (8.5-10.1); Creatinine Clr Calc Pharmacy 65.9 ml/min; Est GFR (African American) 71.8; Est GFR (Non-African American) 61.9; Potassium 4.4 mmol/L (3.5-5.1)
[2020-09-03 08:06] LABS: Albumin Globulin Ratio 0.6 (0.9-2); Bilirubin,Total 0.4 mg/dl (0.2-1); Globulin 5.5 gm/dl (2.5-4.0); Total Protein 8.6 gm/dl (6.4-8.2)
[2020-09-03 08:10] LABS: Partial Thromboplastin Time 50.1 Seconds (21.0-31.0)
[2020-09-03] MEDS: OSELTAMIVIR PHOSPHATE 75 MG CAP PO SCH ×2 (08:50→20:21)
[2020-09-03] MEDS: CHOLECALCIFEROL 1,000 UNITS 25 MCG TAB PO SCH (08:50)
[2020-09-03] MEDS: dexAMETHasone 6 MG in SYRINGE 0 ML IV SCH (08:50)
[2020-09-03] MEDS: PANTOprazole 40 MG TAB PO SCH (08:50)
[2020-09-03] MEDS: FLUTICASONE FUROATE 100MCG 14 PUFFS/INHALER INH SCH (08:51)
--- NOTE | 2020-09-03 09:36 | XRay Report ---
XR chest 1V portable HISTORY: Acute hypoxic respiratory failure COMPARISON: Chest 09/02/2020. FINDINGS: No pneumothorax. No pleural effusions. The heart remains mildly enlarged. Bilateral hazy ai rspace opacities most pronounced within the mid to lower lung zones have improved. IMPRESSION: 1. Interval improvement in the bilateral airspace opacities. 2. Stable cardiomegaly. ACT 112: Negative or not required by law. Electronically signed by: Per Stokes M.D. 09/03/2020 9:35 AM
--- NOTE | 2020-09-03 10:16 | Hospitalist Progress Note ---
Date of Service September 03, 2020 Assessment & Plan (1) Acute respiratory failure with hypoxia: Secondary to COVID-19, influenza, and possible secondary bacterial infection. Pulmonary embolism is less likely given d-dimer, stop heparin drip today, change to Lovenox 40 q12 for prophylaxis dosing this morning he is breathing stable on 30L and 90% FiO2, tachypnea but no distress and non-labored try to wean high flow as tolerated if he would get worse we can encourage prone positioning (2) Pneumonia due to COVID-19 virus: Dexamethasone 6 mg IV daily x 10 days, today is day 2 supplemental oxygen encourage PO intake, remove fluid restriction and make regular diet Day 11 of illness therefore do not suspect any benefit of remdesivir and potential risk with already elevated LFTs. Isolation precautions (3) Influenza B: Tamiflu 75mg PO BID x 7 days, day 2 today (4) Acute pulmonary edema: Suspect solely secondary to COVID-19 pneumonia as also clinically dry. remove fluid restriction cancel TTE for now, can get one when off restrictions, low suspicion for heart failure (5) Multifocal pneumonia: Continue ceftriaxone and azithromycin for secondary bacterial infection, treat for 5-7 days Procalcitonin 0.7 (6) GERD (gastroesophageal reflux disease): Switch omeprazole to pantoprazole as per hospital formulary (7) Chronic obstructive pulmonary disease: No acute exacerbation. Patient feels worse with nebulizers Continue Alvesco or hospital formulary equivalent. (8) Bipolar disorder: Continue his usual psychiatric medications - risperidone, trazodone and fluoxetine. Monitor QTc with daily EKG (9) DVT prophylaxis: lovenox 40 q12 Admission and Anticipated Discharge Date Admission Date: September 02, 2020 Subjective reviewed chart, admitted yesterday, CXR with multifocal pneumonia he tested positive for COVID back on 08/26, he has been sick since 08/22 he was in the [facility] but was hypoxic on 6L NC so he was sent to the ED he was also positive for influenza B in the ED labs this morning show WBC 11k, Hb 16, Cr 1.24, K 4.4 ABG yesterday showed hypoxemia with paO2 75, respiratory alkalosis CO2 37 D dimer was 730, could not lay flat for CTA chest, low suspicion for PE he appears comfortable this morning on 90% and 30L, no distress, no labored breathing, he is tachypneic he is hungry and thirsty, will remove fluid restriction and give regular diet he says he feels a lot better since he was admitted denies chest pain, admits to some coughing spells, no sputum production no GI symptoms such as diarrhea, but he does admit to some mild nausea, never vomited, no abdominal pain Review of Systems Review of Systems: All systems reviewed & are unremarkable except as noted in Subjective Physical Exam Constitutional: well developed, well nourished, + ill appearing and comfortable; no acute distress Neck: trachea midline, no thyromegaly Respiratory: + cough and + tachypneic; no respiratory distress and no labored breathing Auscultation: lungs clear to auscultation bilaterally Cardiovascular: RRR, no murmur, no edema Gastrointestinal (Abdomen): normal bowel sounds, soft, nontender, no hepatosplenomegaly Musculoskeletal: no cyanosis or clubbing, extremities motor strength 5/5 Skin: no rashes, warm and dry Neurologic: patellar DTR's 2+ bilat, sensation intact and PERRL, EOMI, accommodation nl, no face palsy, no dysarthria Psychiatric: A+Ox3, euthymic affect Lymphatic: no cervical or axillary lymphadenopathy Results & Data Results & Data ([facility]) Vital Signs (Past 12 Hours) Vital Signs Temp Pulse Pulse Resp BP Pulse Ox 09/03/20 07:54 37.1 C 89 27 H 155/96 H 92 09/03/20 07:50 93 H 34 H 93 09/03/20 07:15 104 H 34 H 95 09/03/20 04:07 37.5 C 92 H 18 156/90 H 98 09/03/20 03:28 95 H 38 H 96 09/03/20 00:00 99 H 09/02/20 23:54 37.2 C 98 H 20 171/106 H 95 09/02/20 22:39 85 20 93 Laboratory Results Laboratory Results - last 24 hr 09/02/20 09/02/20 09/02/20 15:00 15:00 15:00 WBC 10.30 RBC 5.18 Hgb 15.1 Hct 44.5 MCV 85.9 MCH 29.2 MCHC 33.9 RDW Std Deviation 45.8 RDW Coeff of Raimundo 14.5 Plt Count 274 MPV 10.4 Immature Gran % (Auto) 1.1 Neut % (Auto) 83.0 Lymph % (Auto) 9.6 Potter % (Auto) 6.1 Eos % (Auto) 0.1 Baso % (Auto) 0.1 Neut # (Auto) 8.55 H Lymph # (Auto) 0.99 L Potter # (Auto) 0.63 H Eos # (Auto) 0.01 Baso # (Auto) 0.01 Immature Gran # (Auto) 0.11 H PT Cancelled INR Cancelled APTT Cancelled PTT Ratio Cancelled D-Dimer ABG pH ABG pCO2 ABG pO2 ABG HCO3 ABG O2 Saturation ABG Base Excess Jamin Test VBG pH VBG pCO2 VBG pO2 VBG HCO3 VBG O2 Saturation VBG Base Excess Barometric Pressure Oxygen Given Sodium 137 Potassium 4.2 Chloride 106 Carbon Dioxide 29 Anion Gap 2.0 L BUN 16 Creatinine 1.33 Est Cr Clr Drug Dosing 61.5 Est GFR ( Amer) 65.9 Est GFR (Non-Af Amer) 56.9 BUN/Creatinine Ratio 12.1 Glucose 107 H Lactate Calcium 9.1 Ferritin Total Bilirubin 0.4 AST 179 H ALT 159 H Alkaline Phosphatase 92 Lactate Dehydrogenase Total Creatine Kinase Troponin I < 0.015 C-Reactive Protein NT-Pro-B Natriuret Pep Total Protein 7.8 Albumin 2.9 L Globulin 4.9 H Albumin/Globulin Ratio 0.6 L Lipase 67 L Procalcitonin Nasal Screen MRSA (PCR) Influ A Molecular Assay Influ B Molecular Assay Blood Type Antibody Screen 09/02/20 09/02/20 09/02/20 15:00 15:56 17:15 WBC RBC Hgb Hct MCV MCH MCHC RDW Std Deviation RDW Coeff of Raimundo Plt Count MPV Immature Gran % (Auto) Neut % (Auto) Lymph % (Auto) Potter % (Auto) Eos % (Auto) Baso % (Auto) Neut # (Auto) Lymph # (Auto) Potter # (Auto) Eos # (Auto) Baso # (Auto) Immature Gran # (Auto) PT INR APTT PTT Ratio D-Dimer ABG pH ABG pCO2 ABG pO2 ABG HCO3 ABG O2 Saturation ABG Base Excess Jamin Test VBG pH 7.36 VBG pCO2 49 VBG pO2 25 VBG HCO3 27 VBG O2 Saturation < 60.0 VBG Base Excess 1.1 Barometric Pressure 721.2 Oxygen Given Sodium Potassium Chloride Carbon Dioxide Anion Gap BUN Creatinine Est Cr Clr Drug Dosing Est GFR ( Amer) Est GFR (Non-Af Amer) BUN/Creatinine Ratio Glucose Lactate 1.4 Calcium Ferritin Total Bilirubin AST ALT Alkaline Phosphatase Lactate Dehydrogenase Total Creatine Kinase Troponin I C-Reactive Protein NT-Pro-B Natriuret Pep 36 Total Protein Albumin Globulin Albumin/Globulin Ratio Lipase Procalcitonin Nasal Screen MRSA (PCR) Influ A Molecular Assay Influ B Molecular Assay Blood Type Antibody Screen 09/02/20 09/02/20 09/02/20 17:15 17:15 17:15 WBC RBC Hgb Hct MCV MCH MCHC RDW Std Deviation RDW Coeff of Raimundo Plt Count MPV Immature Gran % (Auto) Neut % (Auto) Lymph % (Auto) Potter % (Auto) Eos % (Auto) Baso % (Auto) Neut # (Auto) Lymph # (Auto) Potter # (Auto) Eos # (Auto) Baso # (Auto) Immature Gran # (Auto) PT INR APTT PTT Ratio D-Dimer ABG pH ABG pCO2 ABG pO2 ABG HCO3 ABG O2 Saturation ABG Base Excess Jamin Test VBG pH VBG pCO2 VBG pO2 VBG HCO3 VBG O2 Saturation VBG Base Excess Barometric Pressure Oxygen Given Sodium Potassium Chloride Carbon Dioxide Anion Gap BUN Creatinine Est Cr Clr Drug Dosing Est GFR ( Amer) Est GFR (Non-Af Amer) BUN/Creatinine Ratio Glucose Lactate Calcium Ferritin 2456.7 H Total Bilirubin AST ALT Alkaline Phosphatase Lactate Dehydrogenase 713 H Total Creatine Kinase 862 H Troponin I C-Reactive Protein 13.70 H NT-Pro-B Natriuret Pep Total Protein Albumin Globulin Albumin/Globulin Ratio Lipase Procalcitonin Nasal Screen MRSA (PCR) Influ A Molecular Assay Influ B Molecular Assay Blood Type O Positive Antibody Screen NEGATIVE 09/02/20 09/02/20 09/02/20 17:15 17:15 18:25 WBC RBC Hgb Hct MCV MCH MCHC RDW Std Deviation RDW Coeff of Raimundo Plt Count MPV Immature Gran % (Auto) Neut % (Auto) Lymph % (Auto) Potter % (Auto) Eos % (Auto) Baso % (Auto) Neut # (Auto) Lymph # (Auto) Potter # (Auto) Eos # (Auto) Baso # (Auto) Immature Gran # (Auto) PT 12.0 INR 1.1 APTT 36.7 H PTT Ratio 1.3 D-Dimer 730 H* ABG pH ABG pCO2 ABG pO2 ABG HCO3 ABG O2 Saturation ABG Base Excess Jamin Test VBG pH VBG pCO2 VBG pO2 VBG HCO3 VBG O2 Saturation VBG Base Excess Barometric Pressure Oxygen Given Sodium Potassium Chloride Carbon Dioxide Anion Gap BUN Creatinine Est Cr Clr Drug Dosing Est GFR ( Amer) Est GFR (Non-Af Amer) BUN/Creatinine Ratio Glucose Lactate Calcium Ferritin Total Bilirubin AST ALT Alkaline Phosphatase Lactate Dehydrogenase Total Creatine Kinase Troponin I C-Reactive Protein NT-Pro-B Natriuret Pep Total Protein Albumin Globulin Albumin/Globulin Ratio Lipase Procalcitonin 0.71 H Nasal Screen MRSA (PCR) Influ A Molecular Assay Negative Influ B Molecular Assay Positive A* Blood Type Antibody Screen 09/02/20 09/02/20 09/02/20 18:25 21:41 23:06 WBC RBC Hgb Hct MCV MCH MCHC RDW Std Deviation RDW Coeff of Raimundo Plt Count MPV Immature Gran % (Auto) Neut % (Auto) Lymph % (Auto) Potter % (Auto) Eos % (Auto) Baso % (Auto) Neut # (Auto) Lymph # (Auto) Potter # (Auto) Eos # (Auto) Baso # (Auto) Immature Gran # (Auto) PT INR APTT 71.2 H* PTT Ratio 2.6 D-Dimer ABG pH 7.45 ABG pCO2 37 ABG pO2 76 L ABG HCO3 25 H ABG O2 Saturation 95.9 H ABG Base Excess 1.3 Jamin Test POS VBG pH VBG pCO2 VBG pO2 VBG HCO3 VBG O2 Saturation VBG Base Excess Barometric Pressure 721.8 Oxygen Given FiO2 90% Sodium Potassium Chloride Carbon Dioxide Anion Gap BUN Creatinine Est Cr Clr Drug Dosing Est GFR ( Amer) Est GFR (Non-Af Amer) BUN/Creatinine Ratio Glucose Lactate Calcium Ferritin Total Bilirubin AST ALT Alkaline Phosphatase Lactate Dehydrogenase Total Creatine Kinase Troponin I C-Reactive Protein NT-Pro-B Natriuret Pep Total Protein Albumin Globulin Albumin/Globulin Ratio Lipase Procalcitonin Nasal Screen MRSA (PCR) Negative Influ A Molecular Assay Influ B Molecular Assay Blood Type Antibody Screen 09/03/20 09/03/20 09/03/20 07:19 07:19 07:19 WBC 11.72 H RBC 5.50 Hgb 16.0 Hct 46.6 MCV 84.7 MCH 29.1 MCHC 34.3 RDW Std Deviation 45.2 RDW Coeff of Raimundo 14.4 Plt Count 329 MPV 10.5 H Immature Gran % (Auto) 1.7 Neut % (Auto) 80.0 Lymph % (Auto) 9.9 Potter % (Auto) 8.2 Eos % (Auto) 0.0 Baso % (Auto) 0.2 Neut # (Auto) 9.38 H Lymph # (Auto) 1.16 L Potter # (Auto) 0.96 H Eos # (Auto) 0.00 Baso # (Auto) 0.02 Immature Gran # (Auto) 0.20 H PT INR APTT 50.1 H* PTT Ratio 1.8 D-Dimer ABG pH ABG pCO2 ABG pO2 ABG HCO3 ABG O2 Saturation ABG Base Excess Jamin Test VBG pH VBG pCO2 VBG pO2 VBG HCO3 VBG O2 Saturation VBG Base Excess Barometric Pressure Oxygen Given Sodium 137 Potassium 4.4 Chloride 102 Carbon Dioxide 27 Anion Gap 7.0 BUN 17 Creatinine 1.24 Est Cr Clr Drug Dosing 65.9 Est GFR ( Amer) 71.8 Est GFR (Non-Af Amer) 61.9 BUN/Creatinine Ratio 13.7 Glucose 100 H Lactate Calcium 9.8 Ferritin Total Bilirubin 0.4 AST 208 H ALT 189 H Alkaline Phosphatase 96 Lactate Dehydrogenase Total Creatine Kinase Troponin I C-Reactive Protein NT-Pro-B Natriuret Pep Total Protein 8.6 H Albumin 3.1 L Globulin 5.5 H Albumin/Globulin Ratio 0.6 L Lipase Procalcitonin Nasal Screen MRSA (PCR) Influ A Molecular Assay Influ B Molecular Assay Blood Type Antibody Screen Medications Administered Current Inpatient Medications Acetaminophen (Acetaminophen 325 Mg Tab) 650 mg PO Q4H PRN PRN Reason: Pain or Fever Stop: 10/02/20 21:25 Al Hydrox/Mg Hydrox/Simethicone (Aluminum/Magnesium Susp 30 Ml Udc) 15 ml PO Q4H PRN PRN Reason: Dyspepsia Stop: 10/02/20 21:25 Enoxaparin Sodium (Enoxaparin Inj 40 Mg/0.4 Ml Syr) 40 mg SQ Q12H JESUS Stop: 10/03/20 18:59 Fluoxetine HCl (Fluoxetine Hcl 20 Mg Cap) 40 mg PO HS JESUS Stop: 10/02/20 21:59 Last Admin: 09/02/20 22:59 Dose: 40 mg Documented by: Fluticasone Furoate (Fluticasone Furoate 100mcg 14 Puffs/Inhaler) 1 puffs INH DAILY [facility] Stop: 10/03/20 08:59 Last Admin: 09/03/20 08:51 Dose: 1 puffs Documented by: Guaifenesin (Guaifenesin 600 Mg Tabcr) 1,200 mg PO Q12 [facility] Stop: 10/03/20 20:59 Ceftriaxone Sodium 2,000 mg/ (Dextrose) 70 mls @ 100 mls/hr IV Q24H [facility]; Protocol Stop: 09/09/20 13:59 Dexamethasone 6 mg/ Syringe 1.5 mls @ 1 mls/min IV QAM [facility] Stop: 09/12/20 08:59 Last Admin: 09/03/20 08:50 Dose: 1 mls/min Documented by: Azithromycin 500 mg/ Dextrose 255 mls @ 127.5 mls/hr IV Q24H [facility] Stop: 09/08/20 19:59 Ondansetron HCl (Ondansetron Inj 2 Mg/Ml 2 Ml Vial) 4 mg IV Q6H PRN PRN Reason: Nausea Stop: 10/02/20 21:25 Oseltamivir Phosphate (Oseltamivir Phosphate 75 Mg Cap) 75 mg PO BID [facility]; Protocol Stop: 09/08/20 08:59 Last Admin: 09/03/20 08:50 Dose: 75 mg Documented by: Pantoprazole Sodium (Pantoprazole 40 Mg Tab) 40 mg PO DAILY [facility] Stop: 10/03/20 08:59 Last Admin: 09/03/20 08:50 Dose: 40 mg Documented by: Risperidone (Risperidone 2 Mg Tablet) 2 mg PO HS [facility] Stop: 10/02/20 21:25 Last Admin: 09/02/20 22:59 Dose: 2 mg Documented by: Trazodone HCl (Trazodone Hcl 50 Mg Tab) 150 mg PO [facility] Stop: 10/02/20 21:25 Last Admin: 09/02/20 22:58 Dose: 150 mg Documented by: Vitamin D (Cholecalciferol 1,000 Units 25 Mcg Tab) 1,000 units PO DAILY [facility] Stop: 10/03/20 08:59 Last Admin: 09/03/20 08:50 Dose: 1,000 units Documented by: PG Care Time/CCT Total # of Minutes Spent Total Time Spent with Patient: Total time spent is greater than 50% in coordination of care (as documented) at patient's floor/unit and/or counseling patient: Coding Level of Care Code 83468 Subseq Hosp Care Lvl 3 Diagnoses Acute respiratory failure with hypoxia J96.01 Pneumonia due to COVID-19 virus U07.1; J12.82 Influenza B J10.1 Acute pulmonary edema J81.0 Multifocal pneumonia J18.9 GERD (gastroesophageal reflux disease) K21.9 Chronic obstructive pulmonary disease J44.9 Bipolar disorder F31.9 DVT prophylaxis Z29.9
[2020-09-03] MEDS: ACETAMINOPHEN 325 MG TAB PO PRN (11:58)
[2020-09-03] MEDS: cefTRIAXone SODIUM 2,000 MG in DEXTROSE 5% 50 ML IV SCH (14:22)
[2020-09-03] MEDS: AZITHROMYCIN 500 MG in DEXTROSE 5% 250 ML IV SCH (18:14)
[2020-09-03] MEDS: ENOXAPARIN INJ 40 MG/0.4 ML SYR SQ SCH (18:15)
[2020-09-03] MEDS: guaiFENesin 600 MG TABCR PO SCH (20:19)
[2020-09-03] MEDS: FLUoxetine HCL 20 MG CAP PO SCH (20:22)
[2020-09-03] MEDS: traZODone HCL 50 MG TAB PO SCH (20:22)
[2020-09-03] MEDS: risperiDONE 2 MG TABLET PO SCH (20:24)
--- NOTE | 2020-09-04 06:55 | Electrocardiogram Report ---
Test Reason : Blood Pressure : / mmHG Vent. Rate : 089 BPM Atrial Rate : 089 BPM P-R Int : 138 ms QRS Dur : 086 ms QT Int : 358 ms P-R-T Axes : 051 036 016 degrees QTc Int : 435 ms Normal sinus rhythm Nonspecific T wave abnormality No previous ECGs available Confirmed by Ashwin Rivas ([id number]) on 09/04/2020 6:55:24 AM Referred By: Lela LIN Confirmed By:Ashwin Rivas
--- NOTE | 2020-09-04 07:32 | Electrocardiogram Report ---
Test Reason : Blood Pressure : / mmHG Vent. Rate : 088 BPM Atrial Rate : 088 BPM P-R Int : 136 ms QRS Dur : 080 ms QT Int : 350 ms P-R-T Axes : 044 037 007 degrees QTc Int : 423 ms Normal sinus rhythm Normal ECG When compared with ECG of 02-SEP-2020 14:29, No significant change was found Confirmed by Ashwin Rivas ([id number]) on 09/04/2020 7:31:56 AM Referred By: Lela LIN Confirmed By:Ashwin Rivas
[2020-09-04] MEDS: ENOXAPARIN INJ 40 MG/0.4 ML SYR SQ SCH ×2 (08:14→18:16)
[2020-09-04] MEDS: dexAMETHasone 6 MG in SYRINGE 0 ML IV SCH (08:14)
[2020-09-04] MEDS: CHOLECALCIFEROL 1,000 UNITS 25 MCG TAB PO SCH (08:15)
[2020-09-04] MEDS: guaiFENesin 600 MG TABCR PO SCH ×2 (08:15→20:57)
[2020-09-04] MEDS: FLUTICASONE FUROATE 100MCG 14 PUFFS/INHALER INH SCH (08:15)
[2020-09-04] MEDS: OSELTAMIVIR PHOSPHATE 75 MG CAP PO SCH ×2 (08:15→20:57)
[2020-09-04] MEDS: PANTOprazole 40 MG TAB PO SCH (08:15)
--- NOTE | 2020-09-04 10:06 | Hospitalist Progress Note ---
Date of Service September 04, 2020 Assessment & Plan (1) Acute respiratory failure with hypoxia: Secondary to COVID-19, influenza, and possible secondary bacterial infection. Pulmonary embolism is less likely given d-dimer, stop heparin drip today, change to Lovenox 40 q12 for prophylaxis dosing this morning he is breathing stable on 35L and 90% FiO2, tachypnea but no distress and non-labored he is compliant with laying prone discussed with him that this is essential to preventing intubation, he understand and will continue to listen (2) Pneumonia due to COVID-19 virus: Dexamethasone 6 mg IV daily x 10 days, today is day 3 supplemental oxygen encourage PO intake, regular diet Day 12 of illness therefore do not suspect any benefit of remdesivir and potential risk with already elevated LFTs. Isolation precautions (3) Influenza B: Tamiflu 75mg PO BID x 5 days, day 3 today (4) Acute pulmonary edema: Suspect solely secondary to COVID-19 pneumonia as also clinically dry. remove fluid restriction cancel TTE for now, can get one when off restrictions, low suspicion for heart failure (5) Multifocal pneumonia: Continue ceftriaxone and azithromycin for secondary bacterial infection, treat for 5-7 days Procalcitonin 0.7, no fever (6) GERD (gastroesophageal reflux disease): Switch omeprazole to pantoprazole as per hospital formulary (7) Chronic obstructive pulmonary disease: No acute exacerbation. Patient feels worse with nebulizers Continue Alvesco or hospital formulary equivalent. (8) Bipolar disorder: Continue his usual psychiatric medications - risperidone, trazodone and fluoxetine. Monitor QTc with daily EKG (9) DVT prophylaxis: lovenox 40 q12 Admission and Anticipated Discharge Date Admission Date: September 02, 2020 Subjective patient still on 90% and 35L not in distress, he is compliant with laying prone, sats 94% on his stomach no fever, eating okay, has a dry cough, no chest pain, no GI symptoms no labs today, will check tomorrow Review of Systems Review of Systems: All systems reviewed & are unremarkable except as noted in Subjective Physical Exam Constitutional: well developed, well nourished, + ill appearing and comfortable; no acute distress Neck: trachea midline, no thyromegaly Respiratory: + cough and + tachypneic; no respiratory distress and no labored breathing Auscultation: lungs clear to auscultation bilaterally Cardiovascular: RRR, no murmur, no edema Gastrointestinal (Abdomen): normal bowel sounds, soft, nontender, no hepatosplenomegaly Musculoskeletal: no cyanosis or clubbing, extremities motor strength 5/5 Skin: no rashes, warm and dry Neurologic: patellar DTR's 2+ bilat, sensation intact and PERRL, EOMI, accommodation nl, no face palsy, no dysarthria Psychiatric: A+Ox3, euthymic affect Lymphatic: no cervical or axillary lymphadenopathy Results & Data Results & Data ([facility]) Vital Signs (Past 12 Hours) Vital Signs Temp Pulse Pulse Resp BP BP Pulse Ox 09/04/20 07:55 81 20 91 09/04/20 07:49 37.3 C 84 26 H 143/95 H 93 09/04/20 05:19 37 C 86 18 101/75 91 09/04/20 02:33 78 24 90 09/04/20 00:50 100 H 28 H 94 09/03/20 23:53 36.8 C 84 30 H 117/85 92 09/03/20 23:15 100 H 26 H 93 Medications Administered Current Inpatient Medications Acetaminophen (Acetaminophen 325 Mg Tab) 650 mg PO Q4H PRN PRN Reason: Pain or Fever Stop: 10/02/20 21:25 Last Admin: 09/03/20 11:58 Dose: 650 mg Documented by: Al Hydrox/Mg Hydrox/Simethicone (Aluminum/Magnesium Susp 30 Ml Udc) 15 ml PO Q4H PRN PRN Reason: Dyspepsia Stop: 10/02/20 21:25 Enoxaparin Sodium (Enoxaparin Inj 40 Mg/0.4 Ml Syr) 40 mg SQ Q12H [facility] Stop: 10/03/20 18:59 Last Admin: 09/04/20 08:14 Dose: 40 mg Documented by: Fluoxetine HCl (Fluoxetine Hcl 20 Mg Cap) 40 mg PO HS [facility] Stop: 10/02/20 21:59 Last Admin: 09/03/20 20:22 Dose: Not Given Documented by: Fluticasone Furoate (Fluticasone Furoate 100mcg 14 Puffs/Inhaler) 1 puffs INH DAILY [facility] Stop: 10/03/20 08:59 Last Admin: 09/04/20 08:15 Dose: 1 puffs Documented by: Guaifenesin (Guaifenesin 600 Mg Tabcr) 1,200 mg PO Q12 [facility] Stop: 10/03/20 20:59 Last Admin: 09/04/20 08:15 Dose: 1,200 mg Documented by: Ceftriaxone Sodium 2,000 mg/ (Dextrose) 70 mls @ 100 mls/hr IV Q24H [facility]; Protocol Stop: 09/09/20 13:59 Last Infusion: 09/03/20 15:23 Dose: Infused Documented by: Dexamethasone 6 mg/ Syringe 1.5 mls @ 1 mls/min IV QAM [facility] Stop: 09/12/20 08:59 Last Admin: 09/04/20 08:14 Dose: 1 mls/min Documented by: Azithromycin 500 mg/ Dextrose 255 mls @ 127.5 mls/hr IV Q24H [facility] Stop: 09/08/20 19:59 Last Infusion: 09/03/20 20:15 Dose: Infused Documented by: Ondansetron HCl (Ondansetron Inj 2 Mg/Ml 2 Ml Vial) 4 mg IV Q6H PRN PRN Reason: Nausea Stop: 10/02/20 21:25 Last Admin: 09/03/20 10:32 Dose: 4 mg Documented by: Oseltamivir Phosphate (Oseltamivir Phosphate 75 Mg Cap) 75 mg PO BID [facility]; Protocol Stop: 09/08/20 08:59 Last Admin: 09/04/20 08:15 Dose: 75 mg Documented by: Pantoprazole Sodium (Pantoprazole 40 Mg Tab) 40 mg PO DAILY [facility] Stop: 10/03/20 08:59 Last Admin: 09/04/20 08:15 Dose: 40 mg Documented by: Risperidone (Risperidone 2 Mg Tablet) 2 mg PO HS [facility] Stop: 10/02/20 21:25 Last Admin: 09/03/20 20:24 Dose: 2 mg Documented by: Trazodone HCl (Trazodone Hcl 50 Mg Tab) 150 mg PO HS [facility] Stop: 10/02/20 21:25 Last Admin: 09/03/20 20:22 Dose: Not Given Documented by: Vitamin D (Cholecalciferol 1,000 Units 25 Mcg Tab) 1,000 units PO DAILY [facility] Stop: 10/03/20 08:59 Last Admin: 09/04/20 08:15 Dose: 1,000 units Documented by: PG Care Time/CCT Total # of Minutes Spent Total Time Spent with Patient: Total time spent is greater than 50% in coordination of care (as documented) at patient's floor/unit and/or counseling patient: Coding Level of Care Code 95917 Subseq Hosp Care Lvl 3 Diagnoses Acute respiratory failure with hypoxia J96.01 Pneumonia due to COVID-19 virus U07.1; J12.82 Influenza B J10.1 Acute pulmonary edema J81.0 Multifocal pneumonia J18.9 GERD (gastroesophageal reflux disease) K21.9 Chronic obstructive pulmonary disease J44.9 Bipolar disorder F31.9 DVT prophylaxis Z29.9
[2020-09-04] MEDS: cefTRIAXone SODIUM 2,000 MG in DEXTROSE 5% 50 ML IV SCH (13:53)
[2020-09-04] MEDS: AZITHROMYCIN 500 MG in DEXTROSE 5% 250 ML IV SCH (18:12)
[2020-09-04] MEDS: traZODone HCL 50 MG TAB PO SCH (20:53)
[2020-09-04] MEDS: FLUoxetine HCL 20 MG CAP PO SCH (20:54)
[2020-09-04] MEDS: risperiDONE 2 MG TABLET PO SCH (20:54)
[2020-09-05 05:42] LABS: Basophils # (auto) 0.08 K/uL (0-0.2); Basophils % (auto) 0.4 %; Hematocrit (blood only) 47.5 % (42-52); Hemoglobin 15.7 g/dL (14.0-18.0); Immature Granulocytes # (auto) 0.74 K/uL (0.00-0.02); Immature Granulocytes % (auto) 4.1 %; Lymphocytes # (auto) 1.45 K/uL (1.2-3.4); Mean Corpuscular Hemoglobin 28.6 pg (25-34); Mean Corpuscular Hgb Conc 33.1 g/dL (32-36); Mean Corpuscular Volume 86.7 fL (80-100); Mean Platelet Volume 10.5 fL (7.4-10.4); Monocytes # (auto) 1.97 K/uL (0.11-0.59); Monocytes % (auto) 10.8 %; Neutrophils # (auto) 13.99 K/uL (1.4-6.5); Neutrophils % (auto) 76.7 %; Nucleated RBC # (auto) 0.09 K/uL (0-0); Nucleated RBC % (auto) 0.5 %; Platelet Count 393 K/uL (130-400); RDW Coefficient of Variation 14.4 % (11.5-14.5); RDW Standard Deviation 45.8 fL (36.4-46.3); Red Blood Count 5.48 M/uL (4.7-6.1); White Blood Count 18.23 K/uL (4.8-10.8)
[2020-09-05 06:19] LABS: BUN Creatinine Ratio 23.7 (10-20); Creatinine Clr Calc Pharmacy 66.7 ml/min; Est GFR (African American) 73.2; Est GFR (Non-African American) 63.1; Magnesium 2.8 mg/dl (1.8-2.4); Potassium 4.5 mmol/L (3.5-5.1)
[2020-09-05 06:20] LABS: Phosphorus 2.9 mg/dl (2.5-4.9)
[2020-09-05] MEDS: ENOXAPARIN INJ 40 MG/0.4 ML SYR SQ SCH ×2 (06:38→18:00)
[2020-09-05] MEDS: PANTOprazole 40 MG TAB PO SCH (08:40)
[2020-09-05] MEDS: OSELTAMIVIR PHOSPHATE 75 MG CAP PO SCH ×2 (08:40→21:11)
[2020-09-05] MEDS: CHOLECALCIFEROL 1,000 UNITS 25 MCG TAB PO SCH (08:40)
[2020-09-05] MEDS: FLUTICASONE FUROATE 100MCG 14 PUFFS/INHALER INH SCH (08:41)
[2020-09-05] MEDS: guaiFENesin 600 MG TABCR PO SCH ×2 (08:41→21:10)
[2020-09-05] MEDS: dexAMETHasone 6 MG in SYRINGE 0 ML IV SCH (08:41)
--- NOTE | 2020-09-05 12:33 | Hospitalist Progress Note ---
Date of Service September 05, 2020 Assessment & Plan (1) Acute respiratory failure with hypoxia: Secondary to COVID-19, influenza, and possible secondary bacterial infection. Pulmonary embolism is less likely given d-dimer, stop heparin drip today, change to Lovenox 40 q12 for prophylaxis dosing breathing remains stable on 35L and 90% FiO2, tachypnea but no distress and non- labored he is compliant with laying prone several hours a day discussed with him that this is essential to preventing intubation, he understand and will continue to listen even when he is supine his saturations are 90-93% on the 35L and 90%, will try to wean back a little and see how he does (2) Pneumonia due to COVID-19 virus: Dexamethasone 6 mg IV daily x 10 days, today is day 4 supplemental oxygen encourage PO intake, regular diet Day 12 of illness therefore do not suspect any benefit of remdesivir and potential risk with already elevated LFTs. Isolation precautions (3) Influenza B: Tamiflu 75mg PO BID x 5 days, day 4 today (4) Multifocal pneumonia: Continue ceftriaxone and azithromycin for secondary bacterial infection, treat for 5 days, today is day 4 Procalcitonin 0.7, no fever (5) GERD (gastroesophageal reflux disease): Switch omeprazole to pantoprazole as per hospital formulary (6) Chronic obstructive pulmonary disease: No acute exacerbation. Patient feels worse with nebulizers Continue Alvesco or hospital formulary equivalent. (7) Bipolar disorder: Continue his usual psychiatric medications - risperidone, trazodone and fluoxetine. Monitor QTc with daily EKG (8) DVT prophylaxis: lovenox 40 q12 Admission and Anticipated Discharge Date Admission Date: September 02, 2020 Subjective patient is calm, no distress, he is a little tachypneic, laying supine he is eating well, he says he plans to lay prone again prior to lunch, he has been prone several hours a day, working well for him no fever, vitals stable, labs reviewed WBC 18k, Cr 1.22, K 4.5 no chest pain, no GI symptoms such as nausea/vomiting or diarrhea he admits to feeling chills from time to time he is a very compliant patient, working hard to get better, laying prone as instructed Review of Systems Review of Systems: All systems reviewed & are unremarkable except as noted in Subjective Constitutional: + chills; no fever, no sweats, no fatigue and no weakness Respiratory: + cough and + dyspnea Cardiovascular: no chest pain and no edema Gastrointestinal: no abdominal pain, no nausea, no vomiting, no constipation and no diarrhea/loose stools Physical Exam Constitutional: well developed, well nourished and comfortable; no acute distress Neck: trachea midline, no thyromegaly Respiratory: + tachypneic; no respiratory distress and no labored breathing Auscultation: lungs clear to auscultation bilaterally Cardiovascular: RRR, no murmur, no edema Gastrointestinal (Abdomen): normal bowel sounds, soft, nontender, no hepatosplenomegaly Musculoskeletal: no cyanosis or clubbing, extremities motor strength 5/5 Skin: no rashes, warm and dry Neurologic: patellar DTR's 2+ bilat, sensation intact and PERRL, EOMI, accommodation nl, no face palsy, no dysarthria Psychiatric: A+Ox3, euthymic affect Lymphatic: no cervical or axillary lymphadenopathy Results & Data Results & Data ([facility]) Vital Signs (Past 12 Hours) Vital Signs Temp Pulse Pulse Resp BP BP Pulse Ox 09/05/20 11:42 72 18 97 09/05/20 08:39 80 20 91 09/05/20 07:50 36.9 C 82 24 125/62 90 09/05/20 04:13 37.1 C 80 21 146/88 H 90 09/05/20 03:17 82 20 94 09/05/20 01:50 75 Laboratory Results Laboratory Results - last 24 hr 09/05/20 09/05/20 05:09 05:09 WBC 18.23 H RBC 5.48 Hgb 15.7 Hct 47.5 MCV 86.7 MCH 28.6 MCHC 33.1 RDW Std Deviation 45.8 RDW Coeff of Raimundo 14.4 Plt Count 393 MPV 10.5 H Immature Gran % (Auto) 4.1 Neut % (Auto) 76.7 Lymph % (Auto) 8.0 [place] % (Auto) 10.8 Eos % (Auto) 0.0 Baso % (Auto) 0.4 Neut # (Auto) 13.99 H Lymph # (Auto) 1.45 [place] # (Auto) 1.97 H Eos # (Auto) 0.00 Baso # (Auto) 0.08 Immature Gran # (Auto) 0.74 H Absolute Nucleated RBC 0.09 H Nucleated RBC % (auto) 0.5 Sodium 137 Potassium 4.5 Chloride 104 Carbon Dioxide 30 Anion Gap 3.0 BUN 29 H D Creatinine 1.22 Est Cr Clr Drug Dosing 66.7 Est GFR ( Amer) 73.2 Est GFR (Non-Af Amer) 63.1 BUN/Creatinine Ratio 23.7 H Glucose 115 H Calcium 9.0 Phosphorus 2.9 Magnesium 2.8 H Medications Administered Current Inpatient Medications Acetaminophen (Acetaminophen 325 Mg Tab) 650 mg PO Q4H PRN PRN Reason: Pain or Fever Stop: 10/02/20 21:25 Last Admin: 09/03/20 11:58 Dose: 650 mg Documented by: Al Hydrox/Mg Hydrox/Simethicone (Aluminum/Magnesium Susp 30 Ml Udc) 15 ml PO Q4H PRN PRN Reason: Dyspepsia Stop: 10/02/20 21:25 Enoxaparin Sodium (Enoxaparin Inj 40 Mg/0.4 Ml Syr) 40 mg SQ Q12H [facility] Stop: 10/03/20 18:59 Last Admin: 09/05/20 06:38 Dose: 40 mg Documented by: Fluoxetine HCl (Fluoxetine Hcl 20 Mg Cap) 40 mg PO HS [facility] Stop: 10/02/20 21:59 Last Admin: 09/04/20 20:54 Dose: Not Given Documented by: Fluticasone Furoate (Fluticasone Furoate 100mcg 14 Puffs/Inhaler) 1 puffs INH DAILY [facility] Stop: 10/03/20 08:59 Last Admin: 09/05/20 08:41 Dose: 1 puffs Documented by: Guaifenesin (Guaifenesin 600 Mg Tabcr) 1,200 mg PO Q12 [facility] Stop: 10/03/20 20:59 Last Admin: 09/05/20 08:41 Dose: 1,200 mg Documented by: Ceftriaxone Sodium 2,000 mg/ (Dextrose) 70 mls @ 100 mls/hr IV Q24H [facility]; Protocol Stop: 09/09/20 13:59 Last Infusion: 09/04/20 14:52 Dose: Infused Documented by: Dexamethasone 6 mg/ Syringe 1.5 mls @ 1 mls/min IV QAM [facility] Stop: 09/12/20 08:59 Last Admin: 09/05/20 08:41 Dose: 1 mls/min Documented by: Azithromycin 500 mg/ Dextrose 255 mls @ 127.5 mls/hr IV Q24H [facility] Stop: 09/08/20 19:59 Last Infusion: 09/04/20 20:40 Dose: Infused Documented by: Ondansetron HCl (Ondansetron Inj 2 Mg/Ml 2 Ml Vial) 4 mg IV Q6H PRN PRN Reason: Nausea Stop: 10/02/20 21:25 Last Admin: 09/03/20 10:32 Dose: 4 mg Documented by: Oseltamivir Phosphate (Oseltamivir Phosphate 75 Mg Cap) 75 mg PO BID [facility]; Protocol Stop: 09/08/20 08:59 Last Admin: 09/05/20 08:40 Dose: 75 mg Documented by: Pantoprazole Sodium (Pantoprazole 40 Mg Tab) 40 mg PO DAILY [facility] Stop: 10/03/20 08:59 Last Admin: 09/05/20 08:40 Dose: 40 mg Documented by: Risperidone (Risperidone 2 Mg Tablet) 2 mg PO HS [facility] Stop: 10/02/20 21:25 Last Admin: 09/04/20 20:54 Dose: Not Given Documented by: Trazodone HCl (Trazodone Hcl 50 Mg Tab) 150 mg PO HS [facility] Stop: 10/02/20 21:25 Last Admin: 09/04/20 20:53 Dose: Not Given Documented by: Vitamin D (Cholecalciferol 1,000 Units 25 Mcg Tab) 1,000 units PO DAILY [facility] Stop: 10/03/20 08:59 Last Admin: 09/05/20 08:40 Dose: 1,000 units Documented by: PG Care Time/CCT Total # of Minutes Spent Total Time Spent with Patient: Total time spent is greater than 50% in coordination of care (as documented) at patient's floor/unit and/or counseling patient: Coding Level of Care Code 20817 Subseq Hosp Care Lvl 3 Diagnoses Acute respiratory failure with hypoxia J96.01 Pneumonia due to COVID-19 virus U07.1; J12.82 Influenza B J10.1 Multifocal pneumonia J18.9 GERD (gastroesophageal reflux disease) K21.9 Chronic obstructive pulmonary disease J44.9 Bipolar disorder F31.9 DVT prophylaxis Z29.9
[2020-09-05] MEDS: cefTRIAXone SODIUM 2,000 MG in DEXTROSE 5% 50 ML IV SCH (14:08)
[2020-09-05] MEDS: AZITHROMYCIN 500 MG in DEXTROSE 5% 250 ML IV SCH (17:41)
[2020-09-05] MEDS: risperiDONE 2 MG TABLET PO SCH ×2 (21:11→21:31)
[2020-09-05] MEDS: traZODone HCL 50 MG TAB PO SCH ×2 (21:11→21:31)
[2020-09-05] MEDS: FLUoxetine HCL 20 MG CAP PO SCH ×2 (21:11→21:29)
[2020-09-06] MEDS: ENOXAPARIN INJ 40 MG/0.4 ML SYR SQ SCH ×2 (06:40→18:02)
--- NOTE | 2020-09-06 08:34 | Hospitalist Progress Note ---
Date of Service September 06, 2020 Assessment & Plan (1) Acute respiratory failure with hypoxia: Secondary to COVID-19, influenza B, and possible secondary bacterial infection. Pulmonary embolism is less likely given d-dimer, stopped heparin drip changed to Lovenox 40 q12 for prophylaxis dosing breathing remains on High Flow he is compliant with laying prone several hours a day even when he is supine his saturations are 90-93% on the 30L and 75% (2) Pneumonia due to COVID-19 virus: Dexamethasone 6 mg IV daily x 10 days,LD 09/11 supplemental oxygen encourage PO intake, regular diet almost 2 weeks from the initial symptoms of illness, so will be little benefit of remdesivir and potential risk with already elevated LFTs. Isolation precautions (3) Influenza B: Tamiflu 75mg PO BID x 5 days (4) Multifocal pneumonia: Continue ceftriaxone and azithromycin for secondary bacterial infection, treat for 5 days, Procalcitonin 0.7, no fever (5) GERD (gastroesophageal reflux disease): Switch omeprazole to pantoprazole as per hospital formulary (6) Chronic obstructive pulmonary disease: No acute exacerbation. Patient feels worse with nebulizers Continue Alves[place] or hospital formulary equivalent. (7) Bipolar disorder: Continue his usual psychiatric medications - risperidone, trazodone and fluoxetine. (8) DVT prophylaxis: lovenox 40 q12 Admission and Anticipated Discharge Date Admission Date: September 02, 2020 Subjective pt is doing well still requiring bipap, he has non productive cough and is otherwise without new complaints Review of Systems Review of Systems: Mild distress and fatigue no headache, blurry or double vision no speech or swallowing issues No chest pain pressure or palpitations Mild but persistent shortness of breath, nonproductive cough no abdominal pain, nausea or vomiting, diarrhea or constipation no dysuria, hematuria or frequency no focal joint pain or swelling no back pain, CVA tenderness or radicular pain no bruising, bleeding or rashes no focal signs of weakness or numbness or altered sensation no complaints of anxiety or depression.. Physical Exam Physical Exam: The patient appeared well nourished and normally developed. Vital signs as documented. Head exam is normocephalic atraumatic no scleral icterus Neck is without JVD, thyromegaly, or carotid bruits. Lungs are bibasilar rales clearing at the apex Cardiac exam, Rhythm is regular.. No murmurs, rubs or gallops. Abdominal exam reveals normal bowel sounds, soft non tender, no masses Extremities are nonedematous and both pedal pulses are present Neurologic exam is alert and oriented, no focal loss of strength or sensation Skin is without bruises or rashes Psychologically is without concerns for anxiety or depression. Results & Data Results & Data ([facility]) Vital Signs (Past 12 Hours) Vital Signs Temp Pulse Pulse Resp BP BP Pulse Ox 09/06/20 08:02 99.0 F 82 20 131/86 90 09/06/20 07:39 74 24 93 09/06/20 03:49 98.1 F 76 18 123/82 91 09/06/20 03:37 82 16 90 09/06/20 00:48 68 09/05/20 23:31 98.1 F 71 21 126/82 95 09/05/20 22:55 84 20 94 PG Care Time/CCT Total # of Minutes Spent Total Time Spent with Patient: Total time spent is greater than 50% in coordination of care (as documented) at patient's floor/unit and/or counseling patient: Coding Level of Care Code 20680 Subseq Hosp Care Lvl 3 Diagnoses Acute respiratory failure with hypoxia J96.01 Pneumonia due to COVID-19 virus U07.1; J12.82 Influenza B J10.1 Multifocal pneumonia J18.9 GERD (gastroesophageal reflux disease) K21.9 Chronic obstructive pulmonary disease J44.9 Bipolar disorder F31.9 DVT prophylaxis Z29.9
[2020-09-06] MEDS: dexAMETHasone 6 MG in SYRINGE 0 ML IV SCH (08:36)
[2020-09-06] MEDS: FLUTICASONE FUROATE 100MCG 14 PUFFS/INHALER INH SCH (08:36)
[2020-09-06] MEDS: PANTOprazole 40 MG TAB PO SCH (08:38)
[2020-09-06] MEDS: CHOLECALCIFEROL 1,000 UNITS 25 MCG TAB PO SCH (08:38)
[2020-09-06] MEDS: OSELTAMIVIR PHOSPHATE 75 MG CAP PO SCH ×2 (08:38→20:44)
[2020-09-06] MEDS: guaiFENesin 600 MG TABCR PO SCH ×2 (08:38→20:44)
[2020-09-06] MEDS ORDERED: SODIUM CHLORIDE 0.65% NA SOLN 45 ML (OCEAN) ONE (14:59)
[2020-09-06] MEDS: cefTRIAXone SODIUM 2,000 MG in DEXTROSE 5% 50 ML IV SCH (15:02)
[2020-09-06] MEDS: AZITHROMYCIN 500 MG in DEXTROSE 5% 250 ML IV SCH (18:02)
[2020-09-06] MEDS: risperiDONE 2 MG TABLET PO SCH (20:45)
[2020-09-06] MEDS: traZODone HCL 50 MG TAB PO SCH (20:49)
[2020-09-06] MEDS: FLUoxetine HCL 20 MG CAP PO SCH (20:49)
[2020-09-07] MEDS: ENOXAPARIN INJ 40 MG/0.4 ML SYR SQ SCH ×2 (06:12→17:36)
[2020-09-07] MEDS: guaiFENesin 600 MG TABCR PO SCH ×2 (08:33→20:27)
[2020-09-07] MEDS: dexAMETHasone 6 MG in SYRINGE 0 ML IV SCH (08:33)
[2020-09-07] MEDS: OSELTAMIVIR PHOSPHATE 75 MG CAP PO SCH ×2 (08:34→20:28)
[2020-09-07] MEDS: FLUTICASONE FUROATE 100MCG 14 PUFFS/INHALER INH SCH (08:34)
[2020-09-07] MEDS: PANTOprazole 40 MG TAB PO SCH (08:34)
[2020-09-07] MEDS: CHOLECALCIFEROL 1,000 UNITS 25 MCG TAB PO SCH (08:34)
--- NOTE | 2020-09-07 16:37 | Hospitalist Progress Note ---
Date of Service September 07, 2020 Assessment & Plan (1) Acute respiratory failure with hypoxia: Secondary to COVID-19, influenza B, and possible secondary bacterial infection. Pulmonary embolism is less likely given d-dimer, stopped heparin drip changed to Lovenox 40 q12 for prophylaxis dosing breathing remains on vapotherm he is compliant with laying prone as much as possible even when he is supine his saturations are 90-93% on the 25L and 60% (2) Pneumonia due to COVID-19 virus: Dexamethasone 6 mg IV daily x 10 days,LD 09/11 supplemental oxygen encourage PO intake, regular diet almost 2 weeks from the initial symptoms of illness, so will be little benefit of remdesivir and potential risk with already elevated LFTs. Isolation precautions (3) Influenza B: Tamiflu 75mg PO BID x 5 days (4) Multifocal pneumonia: Continue ceftriaxone and azithromycin for secondary bacterial infection, treat for 5 days, Procalcitonin 0.7, no fever (5) GERD (gastroesophageal reflux disease): Switch omeprazole to pantoprazole as per hospital formulary (6) Chronic obstructive pulmonary disease: No acute exacerbation. Patient feels worse with nebulizers Continue Alves[place] or hospital formulary equivalent. (7) Bipolar disorder: Continue his usual psychiatric medications - risperidone, trazodone and fluoxetine. (8) DVT prophylaxis: lovenox 40 q12 Admission and Anticipated Discharge Date Admission Date: September 02, 2020 Subjective pt is doing well on reducing vapotherm suppport, he continues with a non productive cough and is otherwise without new complaints Review of Systems Review of Systems: Mild distress and fatigue no headache, blurry or double vision no speech or swallowing issues No chest pain pressure or palpitations Mild but persistent shortness of breath, nonproductive cough no abdominal pain, nausea or vomiting, diarrhea or constipation no dysuria, hematuria or frequency no focal joint pain or swelling no back pain, CVA tenderness or radicular pain no bruising, bleeding or rashes no focal signs of weakness or numbness or altered sensation no complaints of anxiety or depression.. Physical Exam 2 Physical Exam: The patient appeared well nourished and normally developed. Vital signs as documented. Head exam is normocephalic atraumatic no scleral icterus Neck is without JVD, thyromegaly, or carotid bruits. Lungs are bibasilar rales clearing at the apex Cardiac exam, Rhythm is regular.. No murmurs, rubs or gallops. Abdominal exam reveals normal bowel sounds, soft non tender, no masses Extremities are nonedematous and both pedal pulses are present Neurologic exam is alert and oriented, no focal loss of strength or sensation Skin is without bruises or rashes Psychologically is without concerns for anxiety or depression. Results & Data Results & Data ([facility]) Vital Signs (Past 12 Hours) Vital Signs Temp Pulse Pulse Resp BP Pulse Ox 09/07/20 15:39 93 H 18 94 09/07/20 15:31 90 09/07/20 15:14 99.0 F 93 H 23 126/79 94 09/07/20 11:39 98.8 F 89 21 109/72 93 09/07/20 11:21 93 H 18 94 09/07/20 09:31 90 09/07/20 07:51 99.0 F 89 19 118/85 89 L 09/07/20 07:31 80 20 90 PG Care Time/CCT Total # of Minutes Spent Total Time Spent with Patient: Total time spent is greater than 50% in coordination of care (as documented) at patient's floor/unit and/or counseling patient: Coding Level of Care Code 21463 Subseq Hosp Care Lvl 3 Diagnoses Acute respiratory failure with hypoxia J96.01 Pneumonia due to COVID-19 virus U07.1; J12.82 Influenza B J10.1 Multifocal pneumonia J18.9 GERD (gastroesophageal reflux disease) K21.9 Chronic obstructive pulmonary disease J44.9 Bipolar disorder F31.9 DVT prophylaxis Z29.9
[2020-09-07] MEDS: AZITHROMYCIN 500 MG in DEXTROSE 5% 250 ML IV SCH (17:36)
[2020-09-07] MEDS: risperiDONE 2 MG TABLET PO SCH (20:28)
[2020-09-07] MEDS: traZODone HCL 50 MG TAB PO SCH (20:29)
[2020-09-07] MEDS: FLUoxetine HCL 20 MG CAP PO SCH (20:29)
[2020-09-08] MEDS: FLUTICASONE FUROATE 100MCG 14 PUFFS/INHALER INH SCH (08:18)
[2020-09-08] MEDS: PANTOprazole 40 MG TAB PO SCH (08:19)
[2020-09-08] MEDS: CHOLECALCIFEROL 1,000 UNITS 25 MCG TAB PO SCH (08:19)
[2020-09-08] MEDS: ENOXAPARIN INJ 40 MG/0.4 ML SYR SQ SCH ×2 (08:19→18:17)
[2020-09-08] MEDS: dexAMETHasone 6 MG in SYRINGE 0 ML IV SCH (08:20)
[2020-09-08] MEDS: guaiFENesin 600 MG TABCR PO SCH ×2 (09:16→20:43)
[2020-09-08] MEDS: ACETAMINOPHEN 325 MG TAB PO PRN ×2 (09:33→20:42)
--- NOTE | 2020-09-08 17:42 | Hospitalist Progress Note ---
Date of Service September 08, 2020 Assessment & Plan (1) Acute respiratory failure with hypoxia: Secondary to COVID-19, influenza B, and possible secondary bacterial infection. Pulmonary embolism is less likely, Lovenox 40 q12 for prophylaxis dosing now off vapotherm, on to wall unit oxygen he is compliant with laying prone as much as possible even when he is supine his saturations are 90-93% 10L (2) Pneumonia due to COVID-19 virus: Dexamethasone 6 mg IV daily x 10 days,LD 09/11 supplemental oxygen encourage PO intake, regular diet almost 2 weeks from the initial symptoms of illness, so will be little benefit of remdesivir and potential risk with already elevated LFTs. Isolation precautions (3) Influenza B: Tamiflu 75mg PO BID x 5 days (4) Multifocal pneumonia: Continue ceftriaxone and azithromycin for secondary bacterial infection, Procalcitonin 0.7, no fever (5) GERD (gastroesophageal reflux disease): Switch omeprazole to pantoprazole as per hospital formulary (6) Chronic obstructive pulmonary disease: No acute exacerbation. Patient feels worse with nebulizers so stopped Continue Alvesco or hospital formulary equivalent. (7) Bipolar disorder: Continue his usual psychiatric medications - risperidone, trazodone and fluoxetine. (8) DVT prophylaxis: lovenox 40 q12 Admission and Anticipated Discharge Date Admission Date: September 02, 2020 Subjective pt is doing well on now on wall high flow and off vapotherm he continues with a non productive cough and is otherwise without new complaints Review of Systems Review of Systems: Mild distress and fatigue no headache, blurry or double vision no speech or swallowing issues No chest pain pressure or palpitations Mild but persistent shortness of breath, nonproductive cough no abdominal pain, nausea or vomiting, diarrhea or constipation no dysuria, hematuria or frequency no focal joint pain or swelling no back pain, CVA tenderness or radicular pain no bruising, bleeding or rashes no focal signs of weakness or numbness or altered sensation no complaints of anxiety or depression.. Physical Exam Physical Exam: The patient appeared well nourished and normally developed. Vital signs as documented. Head exam is normocephalic atraumatic no scleral icterus Neck is without JVD, thyromegaly, or carotid bruits. Lungs are bibasilar rales clearing at the apex Cardiac exam, Rhythm is regular.. No murmurs, rubs or gallops. Abdominal exam reveals normal bowel sounds, soft non tender, no masses Extremities are nonedematous and both pedal pulses are present Neurologic exam is alert and oriented, no focal loss of strength or sensation Skin is without bruises or rashes Psychologically is without concerns for anxiety or depression. Results & Data Results & Data ([facility]) Vital Signs (Past 12 Hours) Vital Signs Temp Pulse Pulse Resp BP Pulse Ox 09/08/20 15:38 98.6 F 77 20 114/74 97 09/08/20 11:19 116 H 22 94 09/08/20 11:02 98.6 F 79 20 117/78 96 09/08/20 07:54 84 09/08/20 07:34 98.1 F 73 20 130/76 93 PG Care Time/CCT Total # of Minutes Spent Total Time Spent with Patient: Total time spent is greater than 50% in coordination of care (as documented) at patient's floor/unit and/or counseling patient: Coding Level of Care Code 08461 Subseq Hosp Care Lvl 3 Diagnoses Acute respiratory failure with hypoxia J96.01 Pneumonia due to COVID-19 virus U07.1; J12.82 Influenza B J10.1 Multifocal pneumonia J18.9 GERD (gastroesophageal reflux disease) K21.9 Chronic obstructive pulmonary disease J44.9 Bipolar disorder F31.9 DVT prophylaxis Z29.9
[2020-09-08] MEDS: FLUoxetine HCL 20 MG CAP PO SCH (20:40)
[2020-09-08] MEDS: traZODone HCL 50 MG TAB PO SCH (20:40)
[2020-09-08] MEDS: risperiDONE 2 MG TABLET PO SCH (20:41)
[2020-09-09] MEDS: ENOXAPARIN INJ 40 MG/0.4 ML SYR SQ SCH ×2 (06:32→18:34)
[2020-09-09] MEDS: PANTOprazole 40 MG TAB PO SCH (09:11)
[2020-09-09] MEDS: CHOLECALCIFEROL 1,000 UNITS 25 MCG TAB PO SCH (09:11)
[2020-09-09] MEDS: guaiFENesin 600 MG TABCR PO SCH ×2 (09:11→20:08)
[2020-09-09] MEDS: dexAMETHasone 6 MG in SYRINGE 0 ML IV SCH (09:12)
[2020-09-09] MEDS: FLUTICASONE FUROATE 100MCG 14 PUFFS/INHALER INH SCH (09:12)
[2020-09-09] MEDS: ACETAMINOPHEN 325 MG TAB PO PRN ×2 (11:36→20:09)
--- NOTE | 2020-09-09 17:26 | Hospitalist Progress Note ---
Date of Service September 09, 2020 Assessment & Plan (1) Acute respiratory failure with hypoxia: Secondary to COVID-19, influenza B, and possible secondary bacterial infection. Lovenox 40 q12 for prophylaxis dosing now off vapotherm, continues on wall unit oxygen he is compliant with laying prone as much as possible even when he is supine his saturations are 90-93% markedly dyspneic with exertion (2) Pneumonia due to COVID-19 virus: Dexamethasone 6 mg IV daily x 10 days,LD 09/11 supplemental oxygen encourage PO intake, regular diet almost 2 weeks from the initial symptoms of illness, so will be little benefit of remdesivir and potential risk with already elevated LFTs. Isolation precautions (3) Influenza B: Tamiflu 75mg PO BID x 5 days (4) Multifocal pneumonia: Continue ceftriaxone and azithromycin for secondary bacterial infection, compelted course Procalcitonin 0.7, no fever (5) GERD (gastroesophageal reflux disease): Switch omeprazole to pantoprazole as per hospital formulary (6) Chronic obstructive pulmonary disease: No acute exacerbation. Patient feels worse with nebulizers so stopped Continue Alvesco or hospital formulary equivalent. (7) Bipolar disorder: Continue his usual psychiatric medications - risperidone, trazodone and fluoxetine. (8) DVT prophylaxis: lovenox 40 q12 Admission and Anticipated Discharge Date Admission Date: September 02, 2020 Subjective continues to improve with reducing oxygen requirements, still very dyspneic and hypoxic with exertion Review of Systems Review of Systems: Mild distress and fatigue no headache, blurry or double vision no speech or swallowing issues No chest pain pressure or palpitations Mild but persistent shortness of breath, nonproductive cough no abdominal pain, nausea or vomiting, diarrhea or constipation no dysuria, hematuria or frequency no focal joint pain or swelling no back pain, CVA tenderness or radicular pain no bruising, bleeding or rashes no focal signs of weakness or numbness or altered sensation no complaints of anxiety or depression.. Physical Exam Physical Exam: The patient appeared well nourished and normally developed. Vital signs as documented. Head exam is normocephalic atraumatic no scleral icterus Neck is without JVD, thyromegaly, or carotid bruits. Lungs are bibasilar rales clearing at the apex Cardiac exam, Rhythm is regular.. No murmurs, rubs or gallops. Abdominal exam reveals normal bowel sounds, soft non tender, no masses Extremities are nonedematous and both pedal pulses are present Neurologic exam is alert and oriented, no focal loss of strength or sensation Skin is without bruises or rashes Psychologically is without concerns for anxiety or depression. Results & Data Results & Data ([facility]) Vital Signs (Past 12 Hours) Vital Signs Temp Pulse Pulse Resp BP Pulse Ox 09/09/20 15:48 98.6 F 72 24 116/75 96 09/09/20 11:15 98.8 F 76 18 104/64 93 09/09/20 07:58 98.6 F 64 18 123/72 95 09/09/20 07:44 56 L 18 96 09/09/20 07:30 58 L PG Care Time/CCT Total # of Minutes Spent Total Time Spent with Patient: Total time spent is greater than 50% in coordination of care (as documented) at patient's floor/unit and/or counseling patient: Coding Level of Care Code 28288 Subseq Hosp Care Lvl 3 Diagnoses Acute respiratory failure with hypoxia J96.01 Pneumonia due to COVID-19 virus U07.1; J12.82 Influenza B J10.1 Multifocal pneumonia J18.9 GERD (gastroesophageal reflux disease) K21.9 Chronic obstructive pulmonary disease J44.9 Bipolar disorder F31.9 DVT prophylaxis Z29.9
[2020-09-09] MEDS: traZODone HCL 50 MG TAB PO SCH (20:09)
[2020-09-09] MEDS: FLUoxetine HCL 20 MG CAP PO SCH (20:10)
[2020-09-09] MEDS: risperiDONE 2 MG TABLET PO SCH (20:10)
[2020-09-10] MEDS: ENOXAPARIN INJ 40 MG/0.4 ML SYR SQ SCH ×2 (06:18→18:40)
[2020-09-10] MEDS: PANTOprazole 40 MG TAB PO SCH (07:58)
[2020-09-10] MEDS: dexAMETHasone 6 MG in SYRINGE 0 ML IV SCH (07:58)
[2020-09-10] MEDS: CHOLECALCIFEROL 1,000 UNITS 25 MCG TAB PO SCH (07:58)
[2020-09-10] MEDS: guaiFENesin 600 MG TABCR PO SCH ×2 (07:59→20:11)
[2020-09-10] MEDS: FLUTICASONE FUROATE 100MCG 14 PUFFS/INHALER INH SCH (07:59)
[2020-09-10] MEDS: ACETAMINOPHEN 325 MG TAB PO PRN ×2 (07:59→20:11)
--- NOTE | 2020-09-10 17:42 | Hospitalist Progress Note ---
Date of Service September 10, 2020 Assessment & Plan (1) Acute respiratory failure with hypoxia: Secondary to COVID-19, influenza B, and possible secondary bacterial infection. Lovenox 40 q12 for prophylaxis dosing now off vapotherm, continues on wall unit oxygen he is compliant with laying prone as much as possible even when he is supine his saturations are 90-93% markedly dyspneic with exertion (2) Pneumonia due to COVID-19 virus: Dexamethasone 6 mg IV daily x 10 days,LD 09/11 supplemental oxygen, still very palma encourage PO intake, regular diet almost 2 weeks from the initial symptoms of illness, so will be little benefit of remdesivir and potential risk with already elevated LFTs. Isolation precautions (3) Influenza B: Tamiflu 75mg PO BID completed 5 days (4) Multifocal pneumonia: Continue ceftriaxone and azithromycin for secondary bacterial infection, compelted course Procalcitonin 0.7, no fever (5) GERD (gastroesophageal reflux disease): Switch omeprazole to pantoprazole as per hospital formulary (6) Chronic obstructive pulmonary disease: No acute exacerbation. Patient feels worse with nebulizers so stopped Continue Alvesco or hospital formulary equivalent. (7) Bipolar disorder: Continue his usual psychiatric medications - risperidone, trazodone and fluoxetine. (8) DVT prophylaxis: lovenox 40 q12 (9) Organ donor: Patient is expresses wishes to be an organ donor. 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 he is given a number for the National organ donor program to enroll online when he returns to the correction via the [facility] Admission and Anticipated Discharge Date Admission Date: September 02, 2020 Subjective continues to improve with reducing oxygen requirements, still very dyspneic and hypoxic with exertion Review of Systems Review of Systems: Mild distress and fatigue no headache, blurry or double vision no speech or swallowing issues No chest pain pressure or palpitations Mild but persistent shortness of breath, nonproductive cough no abdominal pain, nausea or vomiting, diarrhea or constipation no dysuria, hematuria or frequency no focal joint pain or swelling no back pain, CVA tenderness or radicular pain no bruising, bleeding or rashes no focal signs of weakness or numbness or altered sensation no complaints of anxiety or depression.. Physical Exam Physical Exam: The patient appeared well nourished and normally developed. Vital signs as documented. Head exam is normocephalic atraumatic no scleral icterus Neck is without JVD, thyromegaly, or carotid bruits. Lungs are bibasilar rales clearing at the apex, profound palma Cardiac exam, Rhythm is regular.. No murmurs, rubs or gallops. Abdominal exam reveals normal bowel sounds, soft non tender, no masses Extremities are nonedematous and both pedal pulses are present Neurologic exam is alert and oriented, no focal loss of strength or sensation Skin is without bruises or rashes Psychologically is without concerns for anxiety or depression. Results & Data Results & Data ([facility]) Vital Signs (Past 12 Hours) Vital Signs Temp Pulse Pulse Pulse Resp BP BP 09/10/20 15:55 98.1 F 83 16 107/58 L 09/10/20 14:52 79 09/10/20 11:57 98.6 F 76 20 127/68 09/10/20 08:00 75 09/10/20 07:42 98.6 F 68 22 111/59 L Pulse Ox 09/10/20 15:55 97 09/10/20 14:52 09/10/20 11:57 94 09/10/20 08:00 09/10/20 07:42 96 PG Care Time/CCT Total # of Minutes Spent Total Time Spent with Patient: Total time spent is greater than 50% in coordination of care (as documented) at patient's floor/unit and/or counseling patient: Coding Level of Care Code 16867 Subseq Hosp Care Lvl 2 Diagnoses Acute respiratory failure with hypoxia J96.01 Pneumonia due to COVID-19 virus U07.1; J12.82 Influenza B J10.1 Multifocal pneumonia J18.9 GERD (gastroesophageal reflux disease) K21.9 Chronic obstructive pulmonary disease J44.9 Bipolar disorder F31.9 DVT prophylaxis Z29.9 Organ donor Z52.9
[2020-09-10] MEDS: traZODone HCL 50 MG TAB PO SCH (20:12)
[2020-09-10] MEDS: risperiDONE 2 MG TABLET PO SCH (20:12)
[2020-09-10] MEDS: FLUoxetine HCL 20 MG CAP PO SCH (20:12)
[2020-09-11] MEDS: ENOXAPARIN INJ 40 MG/0.4 ML SYR SQ SCH (06:17)
[2020-09-11] MEDS: FLUTICASONE FUROATE 100MCG 14 PUFFS/INHALER INH SCH (08:29)
[2020-09-11] MEDS: ACETAMINOPHEN 325 MG TAB PO PRN (08:29)
[2020-09-11] MEDS: dexAMETHasone 6 MG in SYRINGE 0 ML IV SCH (08:29)
[2020-09-11] MEDS: guaiFENesin 600 MG TABCR PO SCH (08:29)
[2020-09-11] MEDS: CHOLECALCIFEROL 1,000 UNITS 25 MCG TAB PO SCH (08:30)
[2020-09-11] MEDS: PANTOprazole 40 MG TAB PO SCH (08:30)
--- NOTE | 2020-09-11 15:03 | Discharge Summary ---
Date of Service September 11, 2020 Admission HPI Per Admitting Provider Blayne Medina is a 64-year-old male who presents to the ER from [facility] with shortness of breath and hypoxia. Initially was sick on August 22. Symptoms including fever, chills, shortness of breath, diaphoresis, severe nasal congestion, non-productive cough, myalgias, PND, loss of appetite, loss of taste and smell, nausea, vomiting and orthopnea. When coughing he reports having an electric shock feeling down his right and and jaw. He denies diarrhea, chest or abdominal pain. When coughing right arm electricity, right side of face having pain. Couldn't walk from toilet to bed. He tested positive for COVID-19 around the and was moveed the the COVID-19 unit the . He became so unwell that he was unable to get out of bed with increasing hypoxia therefore was moved to the [facility] on the and has been on supplemental oxygen since then. Today he was noted to be significantly cyanotic with finger nails turning blue and worsening hypoxia (O2 sats 70% on 6L O2) therefore called EMS to transport to the ER. In the ER CXR concerning for cardiomegaly with bilateral pulmonary airspace opacities consistent with pulmonary edema vs. multifocal pneumonia. Since he had already tested positive for COVID-19 this was not repeated. Planned for CT for PE to rule this out however patient had significant desaturations and respiratory distress on lying flat therefore this could not be completed and he was started on IV heparin drip. NSS 1L bolus given as clinically dry on exam. Ceftriaxone and azithromycin given to cover for secondary bacterial infection. MRSA nasal swab negative. Able to maintain saturations around 96% on FiO2 100%, 30LPM high flow O2. He was referred to medicine for admission and ongoing management of COVID-19 pneumonia, acute hypoxic respiratory failure. Influenza PCR done after medicine consulted and subsequently positive for influenza B and patient given Tamiflu 75mg. Principal Diagnosis covid pneumonia influenza B bacterial pneumonia acute hypoxic respiratory failure, resolved Discharge Exam The patient appeared well Vital signs as documented. Lungs are clear to auscultation and appear unlabored mildly hypoxic with exertion Cardiac exam, Rhythm is regular.. No murmurs, rubs or gallops. Abdominal exam reveals normal bowel sounds, soft non tender, no masses Extremities are nonedematous and both pedal pulses are normal. Neurologic exam is alert and oriented, no focal loss of strength or sensation Skin is without bruises or rashes Psychologically is without concerns for anxiety or depression. Discharge Data Allergies Allergy/AdvReac Type Severity Reaction Status Date / Time Penicillins Allergy Unknown Unknown Verified 09/02/20 15:16 pork derived (porcine) Allergy Verified 09/04/20 09:38 Pork/Porcine Containing Allergy Verified 09/04/20 09:38 Products Consultations 09/02/20 16:18 ED Decision to Admit Stat 09/08/20 17:42 Consult Case Management - Discharge Planning Routine Hospital Course (1) Acute respiratory failure with hypoxia: Secondary to COVID-19, influenza B, and possible secondary bacterial infection. Only needing oxygen 2 L with exertion. I spoke with the pleasant present physician Dr. sierra who agrees to have the patient come back to the [facility] he is compliant with laying prone as much as possible even when he is supine his saturations are 90-93% markedly dyspneic with exertion (2) Pneumonia due to COVID-19 virus: Dexamethasone completed 10 days,LD 09/11 supplemental oxygen, only with exertion encourage PO intake, regular diet Should be out of airborne isolation given time course (3) Influenza B: Tamiflu 75mg PO BID completed 5 days (4) Multifocal pneumonia: Continue ceftriaxone and azithromycin for secondary bacterial infection, compelted course Procalcitonin 0.7, no fever (5) GERD (gastroesophageal reflux disease): Is on PPI at time of discharge (6) Chronic obstructive pulmonary disease: No acute exacerbation. Patient feels worse with nebulizers so stopped Continue Alvesco or hospital formulary equivalent. (7) Bipolar disorder: Continue his usual psychiatric medications - risperidone, trazodone and fluoxetine. (8) Organ donor: Patient is expresses wishes to be an organ donor. 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 he is given a number for the National organ donor program to enroll online when he returns to the care home via [facility] Total Time Total Time Spent Total Time Spent (In Minutes): Greater than 30 minutes were required to prepare this discharge summary Discharge Plan Discharge Items [facility]position[facility] Reason For Visit: COVID 19 PNEUMONIA, ACUTE HYPOXIC RESP FAILURE, Discharge Diagnosis: covid pneumonia influenza B Activity: Per Instructions section Activity Comment: gradually increase activity while on oxygen Non-emergency contact: Primary Care Provider Call non-emergency contact if: your symptoms worsen Follow-up/Referrals: Lela LIN [Primary Care Provider] - Diet: Regular Addtl Attending Provider Instructions: pt wishes to be an organ donor, please help to sign him up at [employer] or a similar website continue to use 2 L of oxygen with exertion and at rest as needed You have been diagnosed with Covid pneumonia, influenza B, and bacterial pneumonia. All were treated and you have improved greatly. You still may notice you are slightly tired or dyspneic which is been short of breath with exertion. While you are using oxygen at be recommended you do not increase her activity other than in general moving about your area. However once her oxygen is completely removed you may resume the typical physical exercise Home Isolation COVID-19 Instructions The following information about Home Isolation is from the CDC Website: https://www.cdc.gov/coronavirus/2019-ncov/hcp/dlvfnceg-fjxpcfn-iijwrr.html Stay home except to get medical care People who are mildly ill with COVID-19 are able to isolate at home during their illness. You should restrict activities outside your home, except for getting medical care. Do not go to work, school, or public areas. Avoid using public transportation, ride-sharing, or taxis. Separate yourself from other people and animals in your home People: As much as possible, you should stay in a specific room and away from other people in your home. Also, you should use a separate bathroom, if available. Animals: You should restrict contact with pets and other animals while you are sick with COVID-19, just like you would around other people. Although there have not been reports of pets or other animals becoming sick with COVID-19, it is still recommended that people sick with COVID-19 limit contact with animals until more information is known about the virus. When possible, have another member of your household care for your animals while you are sick. If you are sick with COVID-19, avoid contact with your pet, including petting, snuggling, being kissed or licked, and sharing food. If you must care for your pet or be around animals while you are sick, wash your hands before and after you interact with pets and wear a face mask. Call ahead before visiting your doctor If you have a medical appointment, call the healthcare provider and tell them that you have or may have COVID-19. This will help the healthcare providers office take steps to keep other people from getting infected or exposed. Wear a face mask You should wear a face mask when you are around other people (e.g., sharing a room or vehicle) or pets and before you enter a healthcare providers office. If you are not able to wear a face mask (for example, because it causes trouble breathing), then people who live with you should not stay in the same room with you, or they should wear a face mask if they enter your room. Cover your coughs and sneezes Cover your mouth and nose with a tissue when you cough or sneeze. Throw used tissues in a lined trash can. Immediately wash your hands with soap and water for at least 20 seconds or, if soap and water are not available, clean your hands with an alcohol-based hand call center agent that contains at least 60% alcohol. Clean your hands often Wash your hands often with soap and water for at least 20 seconds, especially after blowing your nose, coughing, or sneezing; going to the bathroom; and before eating or preparing food. If soap and water are not readily available, use an alcohol-based hand call center agent with at least 60% alcohol, covering all s urfaces of your hands and rubbing them together until they feel dry. Soap and water are the best option if hands are visibly dirty. Avoid touching your eyes, nose, and mouth with unwashed hands. Avoid sharing personal household items You should not share dishes, drinking glasses, cups, eating utensils, towels, or bedding with other people or pets in your home. After using these items, they should be washed thoroughly with soap and water. Clean all high-touch surfaces everyday High touch surfaces include counters, tabletops, doorknobs, bathroom fixtures, toilets, phones, keyboards, tablets, and bedside tables. Also, clean any surfaces that may have blood, stool, or body fluids on them. Use a household cleaning spray or wipe, according to the label instructions. Labels contain instructions for safe and effective use of the cleaning product including precautions you should take when applying the product, such as wearing gloves and making sure you have good ventilation during use of the product. Monitor your symptoms Seek prompt medical attention if your illness is worsening (e.g., difficulty breathing).Beforeseeking care, call your healthcare provider and tell them that you have, or are being evaluated for, COVID-19. Put on a face mask before you enter the facility. These steps will help the healthcare providers office to keep other people in the office or waiting room from getting infected or exposed. Ask your healthcare provider to call the local or state health depart ment. Persons who are placed under active monitoring or facilitated self- monitoring should follow instructions provided by their local health department or occupational health professionals, as appropriate. When working with your local health department check their available hours. If you have a medical emergency and need to call 911, notify the dispatch personnel that you have, or are being evaluated for COVID-19. If possible, put on a face mask before emergency medical services arrive. Discontinuing home isolation Patients with confirmed COVID-19 should remain under home isolation precautions until the risk of secondary transmission to others is thought to be low. The decision to discontinue home isolation precautions should be made on a [id number] basis, in consultation with healthcare providers and [facility] and [facility] health departments. Pending Studies at Discharge: No Stand-Alone Forms: [facility] Skilled Items Patient informed of condition?: Yes Discharge Level of Care: Other Communicable Disease: Yes Discharge Prognosis: Stable Lines: None Urinary Catheter: No Medications and DC Order Prescriptions: Continued risperidone 2 mg Tablet 2 mg PO HS RF: 0 trazodone 150 mg Tablet 150 mg PO HS RF: 0 fluoxetine 20 mg Tablet 40 mg PO HS RF: 0 ondansetron HCl 4 mg Tablet 4 mg PO Q8H PRN (Reason: Nausea) RF: 0 acetaminophen [Tylenol Extra Strength] 500 mg Tablet 1,000 mg PO TID PRN (Reason: Pain) RF: 0 zinc sulfate 220 mg Tablet 220 mg PO BID RF: 0 ibuprofen 600 mg Tablet 600 mg PO TID PRN (Reason: Pain) RF: 0 cholecalciferol (vitamin D3) [Vitamin D3] 25 mcg (1,000 unit) Tablet 25 mcg PO DAILY RF: 0 omeprazole 20 mg Tablet,Delayed Release (Dr/Ec) 20 mg PO DAILY RF: 0 Alvesco 80 mcg/actuation Hfa Aerosol Inhaler 1 puff INHALATION BID RF: 0 Discharge Orders: Discharge Order (Routine); Ordered 09/11/20 Ordered By: Mohit Osborn Admission Data Admit Date/Time: 09/02/20 18:10 Attending Provider: Mohit Osborn Admit Provider: Rick Best Primary Care Provider: Lela LIN Other Providers: Rick Best Other Interventions: Discharge Summary Assessment (RN) Last Done: 09/11/20 13:08 Coding Level of Care Code D/C Day Management >30 mins Diagnoses Acute respiratory failure with hypoxia J96.01 Pneumonia due to COVID-19 virus U07.1; J12.82 Influenza B J10.1 Multifocal pneumonia J18.9 GERD (gastroesophageal reflux disease) K21.9 Chronic obstructive pulmonary disease J44.9 Bipolar disorder F31.9 Organ donor Z52.9
== END 2020-09-11 15:10 | DRG 177 ==
LOC: ED 14:19 → SUATTDRO 18:10 → 2E 18:10